=== PATIENT | female | born 1975 | race Caucasian/White ===

== ENCOUNTER 2020-02-23 07:09 | Inpatient (IN) | payer OTHER ==
[~2020-02-23] VITALS: Ht 170.2 cm; Wt 128.1 kg
[2020-02-23] MEDS ORDERED: FUROSEMIDE INJ 10 MG/ML 4 ML VIAL IV STA (07:13)
[2020-02-23] MEDS ORDERED: ASPIRIN 81 MG CHEW TAB PO ONE ×2 (07:15→09:00)
--- NOTE | 2020-02-23 07:19 | Emergency Department Note ---
History of Present Illnes History of Present Illness History of Present Illness This is a 44 year old female with dyspnea and fluid retention of one day duration . Historian: Patient Arrival Mode: Car Onset (how long ago): day(s) (1) Location: chest pain Radiation: Reports non-radiation Severity: moderate Onset quality: sudden Duration (how long): day(s) (1) Timing of current episode: constant Progression: worsening Chronicity: new Context: Denies hx of DVT/PE Relieving factors: rest Exacerbating factors: movement, other (SEBASTIAN) Associated symptoms: Reports chest pain, Reports shortness of breath Treatments prior to arrival: none Previous service: tests performed Past Medical/Family History Physician Review I have reviewed the patient's past medical and family history. Any updates have been documented here. Past Medical History Recent Fever: No Clinical Suspicion of Infectio: No New/Unexplained Change in Ment: No Past Medical History: Hypertension Other Medical History: Morbid Obesity Social History Smoking Cessation: Current every day smoker Counseling Performed: Yes Alcohol Use: None Any Illegal Drug Use: No Review of Systems Review of Systems Constitutional: Reports no symptoms EENTM: Reports no symptoms Cardiovascular: Reports chest pain, Reports edema Respiratory: Reports dyspnea Gastrointestinal: Reports no symptoms Genitourinary: Reports no symptoms Musculoskeletal: Reports no symptoms Integumentary: Reports no symptoms Neurological: Reports no symptoms Psychological: Reports no symptoms Endocrine: Reports no symptoms Hematological/Lymphatic: Reports no symptoms Physical Exam Related Data Allergies: Coded Allergies: sulfamethoxazole (Verified Allergy, Mild, NERVOUS, 02/23/20) trimethoprim (Verified Allergy, Mild, NERVOUS, 02/23/20) Triage Vital Signs Vital Signs Date Time Temp Pulse Resp B/P (MAP) Pulse Ox O2 Delivery O2 Flow Rate FiO2 02/23/20 07:18 97.7 71 22 178/95 95 Room Air 02/23/20 09:00 4.0 Vital signs reviewed: Yes Physical Exam CONSTITUTIONAL Constitutional: Present well-developed, Present morbidly obese, Present distressed, Present ill appearing HENT HENT: Present normocephalic, Present atraumatic, Present oropharynx clear/moist, Present nose normal HENT L/R: Present left ext ear normal, Present right ext ear normal EYES Eyes: Reports PERRL, Reports conjunctivae normal NECK Neck: Present ROM normal PULMONARY Pulmonary: Present respiratory distress CARDIOVASCULAR Cardiovascular: Present regular rhythm, Present LLE edema, Present RLE edema GASTROINTESTINAL Abdominal: Present soft, Present nontender, Present bowel sounds normal GENITOURINARY Genitourinary: Present exam deferred SKIN Skin: Present warm, Present dry MUSCULOSKELETAL Musculoskeletal: Present ROM normal NEUROLOGICAL Neurological: Present alert, Present oriented x 3, Present no gross motor or sensory deficits PSYCHOLOGICAL Psychological: Present mood/affect normal, Present judgement normal Results Laboratory Lab results reviewed: Yes Laboratory comments Laboratory Tests Test 02/23/20 07:41 White Blood Count 9.45 x10e3/uL (4.8-10.8) Red Blood Count 4.41 x10e6/uL (3.6-5.1) Hemoglobin 11.6 g/dL (12.0-16.0) Hematocrit 37.8 % (34.2-44.1) Mean Corpuscular Volume 85.7 fL (81-99) Mean Corpuscular Hemoglobin 26.3 pg (28-32) Mean Corpuscular Hemoglobin Concent 30.7 g/dL (31-35) Red Cell Distribution Width 15.3 % (11.7-14.4) Platelet Count 267 x10e3/uL (140-360) Neutrophils (%) (Auto) 73.4 % (38.7-80.0) Lymphocytes (%) (Auto) 13.5 % (18.0-39.1) Monocytes (%) (Auto) 7.6 % (4.4-11.3) Eosinophils (%) (Auto) 4.2 % (0.0-6.0) Basophils (%) (Auto) 0.8 % (0.0-1.0) Neutrophils # (Auto) 6.9 (2.1-6.9) Lymphocytes # (Auto) 1.3 (1.0-3.2) Monocytes # (Auto) 0.7 (0.2-0.8) Eosinophils # (Auto) 0.4 (0.0-0.4) Basophils # (Auto) 0.1 (0.0-0.1) Absolute Immature Granulocyte (auto 0.05 x10e3/uL (0-0.1) Prothrombin Time 12.1 seconds (11.9-14.5) Prothromb Time International Ratio 0.86 Sodium Level 138 mmol/L (136-145) Potassium Level 4.4 mmol/L (3.5-5.1) Chloride Level 105 mmol/L (98-107) Carbon Dioxide Level 22 mmol/L (22-29) Anion Gap 15.4 mmol/L (8-16) Blood Urea Nitrogen 15 mg/dL (7-26) Creatinine 1.68 mg/dL (0.57-1.11) Estimat Glomerular Filtration Rate 33 ML/MIN (60-) BUN/Creatinine Ratio 9 (6-25) Glucose Level 113 mg/dL (74-118) Lactic Acid Level 1.5 mmol/L (0.5-2.0) Calcium Level 8.7 mg/dL (8.4-10.2) Total Bilirubin 0.7 mg/dL (0.2-1.2) Aspartate Amino Transf (AST/SGOT) 22 IU/L (5-34) Alanine Aminotransferase (ALT/SGPT) 18 IU/L (0-55) Alkaline Phosphatase 128 IU/L (40-150) Creatine Kinase 322 IU/L (29-168) Creatine Kinase MB 4.80 ng/mL (0-5.0) Troponin I 0.008 ng/mL (0-0.300) B-Type Natriuretic Peptide 401.1 pg/mL (0-100) Total Protein 6.3 g/dL (6.5-8.1) Albumin 2.3 g/dL (3.5-5.0) Globulin 4.0 g/dL (2.3-3.5) Albumin/Globulin Ratio 0.6 (0.8-2.0) Imaging Imaging results reviewed: Yes Impressions [place] [id number] Patient Name: DULCE ROBERTS MR #: [id number] : 1975 Age/Sex: 44/F Req #: [id number] Adm Physician: Ordered by: FATOUMATA SELAS DO Report #: [id number] Location: ER Room/Bed: Procedure: [id number] DX/CHEST SINGLE (PORTABLE) Exam Date: 02/23/20 Exam Time: 0746 REPORT STATUS: Signed EXAMINATION: CHEST SINGLE (PORTABLE) INDICATION: Shortness of breath. Thin fluids. COMPARISON: None FINDINGS: TUBES and LINES: None. LUNGS: There is mild prominence of the central pulmonary vasculature, consistent with pulmonary venous congestion. Right basal atelectasis. PLEURA: Small right pleural effusion. No pneumothorax. HEART AND MEDIASTINUM: Cardiac size is mildly enlarged. BONES AND SOFT TISSUES: No acute osseous lesion. Soft tissues are unremarkable. UPPER ABDOMEN: No free air under the diaphragm. IMPRESSION: Decompensated CHF with bilateral pulmonary venous congestion and interstitial edema. Right pleural effusion. Signed by: Dr. Shayy Mccallum M.D. on 02/23/2020 8:19 AM Dictated By: SOFIA MCCALLUM MD, MD 8 Transcribed By: LUAN on 02/23/20818 COPY TO: FATOUMATA SEALS DO~ Procedures 12 Lead ECG Interpretation ECG Interpretation : ECG: ECG 1 Sba Underwriter: Interpreted by ED physician Date: Feb 23, 2020 Rhythm: sinus rhythm Rate: normal BPM: 71 QRS axis: normal ST segments normal: Yes T waves normal: No T waves flattening: I, II, III, V3, V4, V5, V6 Clinical Impression: non-specific ECG Critical Care Time Total Critical Care Time (min): 31 Critcal care necessary due to: cardiac failure, respiratory failure Critcal care time spent by me: develop tx plan w patient/surrogate, discussion w consultants, discussion w primary provider, evaluation patient response to tx, examination of patient, order/perform tx or interventions, order/review laboratory studies, order/review radiographic studies, pulse oximetry, re- evaluation of patient condition, ventilator management Comments 44 yof with acute respiratory distress . BiPAP immediately initiated upon arrival Assessment & Plan Medical Decision Making MDM 44 yof presents with CP and dyspnea. CBC, CMP, Cardiac enzymes,EKG CXR to evaluate for PTX, PNA, CHF, ACS, and COVID-19 URI. Reassessment Reassessment time: 09:46 Reassessment markedly improved WOB. BiPAP discontinued. Plan to admit to the service of Dr Oz Seals with cardiology consult for new onset CHF Assessment & Plan Final Impression: (1) CHF (congestive heart failure) (2) Tobacco abuse (3) Renal insufficiency (4) Hypertensive urgency Depart Disposition: ADMITTED Home Meds Reported Medications Aspirin (ASPIRIN CHEW) 81 Mg Chew, 81 MG PO DAILY, #30 TAB 02/23/20 Dulaglutide (Trulicity) 1.5 Mg/0.5 Ml Pen.injctr, 1.5 MG SQ UD 02/23/20 Simvastatin (SIMVASTATIN) 20 Mg Tablet, 20 MG PO HS 02/23/20 Nifedipine (NIFEDIPINE ER) 90 Mg Tab.er.24, 90 MG PO UD 02/23/20 Metformin Hcl (METFORMIN HCL) 1,000 Mg Tablet, 1000 MG PO BID 02/23/20 Lisinopril (LISINOPRIL) 40 Mg Tablet, 40 MG PO BID 02/23/20 Levothyroxine Sodium (LEVOTHYROXINE SODIUM) 88 Mcg Tablet, 88 MCG PO QAM 02/23/20 Insulin Glargine (LANTUS 3ML PEN) 100 Units/1 Ml Inj, 30 U SQ HS 02/23/20 Sitagliptin Phosphate (JANUVIA) 100 Mg Tablet, 100 MG PO DAILY, #30 TAB 02/23/20 Furosemide (FUROSEMIDE) 20 Mg Tablet, 20 MG PO BID 02/23/20 Atenolol (ATENOLOL) 100 Mg Tablet, 100 MG PO HS 02/23/20 Albuterol Sulfate (ALBUTEROL SULFATE) 2.5 Mg/3 Ml Vial.neb, 1 INH INH Q4HR PRN for SHORTNESS OF BREATH 02/23/20 Medications in the ED Aspirin 81 mg PRN ONCE PO Last administered on 02/23/20at 08:27; Admin Dose 81 MG; Start 02/23/20 at 07:15; Stop 02/23/20 at 07:16 Furosemide 80 mg ONCE STAT IV Last administered on 02/23/20at 08:27; Admin Dose 80 MG; Start 02/23/20 at 07:13; Stop 02/23/20 at 07:14 FATOUMATA SEALS DO Feb 23, 2020 07:19
[2020-02-23 08:01] LABS: BASOPHILS # (AUTO) 0.1 (0.0-0.1); BASOPHILS % 0.8 % (0.0-1.0); EOSINOPHILS # (AUTO) 0.4 (0.0-0.4); EOSINOPHILS % 4.2 % (0.0-6.0); HEMATOCRIT 37.8 % (34.2-44.1); HEMOGLOBIN 11.6 g/dL (12.0-16.0); LYMPHOCYTES # (AUTO) 1.3 (1.0-3.2); LYMPHOCYTES % 13.5 % (18.0-39.1); MEAN CORPUSCULAR HEMOGLOBIN 26.3 pg (28-32); MEAN CORPUSCULAR HGB CONC 30.7 g/dL (31-35); MEAN CORPUSCULAR VOLUME 85.7 fL (81-99); MONOCYTES # (AUTO) 0.7 (0.2-0.8); MONOCYTES % 7.6 % (4.4-11.3); NEUTROPHILS # (AUTO) 6.9 (2.1-6.9); NEUTROPHILS % 73.4 % (38.7-80.0); PLATELET COUNT 267 x10e3/uL (140-360); RED BLOOD COUNT 4.41 x10e6/uL (3.6-5.1); RED CELL DISTRIBUTION WIDTH 15.3 % (11.7-14.4)
[2020-02-23 08:12] LABS: INR 0.86; PROTHROMBIN TIME 12.1 seconds (11.9-14.5)
[2020-02-23 08:19] LABS: ALBUMIN 2.3 g/dL (3.5-5.0); ALBUMIN/GLOBULIN RATIO 0.6 (0.8-2.0); ANION GAP 15.4 mmol/L (8-16); CALCIUM 8.7 mg/dL (8.4-10.2); CREATININE, SERUM 1.68 mg/dL (0.57-1.11); POTASSIUM 4.4 mmol/L (3.5-5.1)
--- NOTE | 2020-02-23 08:22 | Diagnostic Imaging Report ---
EXAMINATION: CHEST SINGLE (PORTABLE) INDICATION: Shortness of breath. Thin fluids. COMPARISON: None FINDINGS: TUBES and LINES: None. LUNGS: There is mild prominence of the central pulmonary vasculature, consistent with pulmonary venous congestion. Right basal atelectasis. PLEURA: Small right pleural effusion. No pneumothorax. HEART AND MEDIASTINUM: Cardiac size is mildly enlarged. BONES AND SOFT TISSUES: No acute osseous lesion. Soft tissues are unremarkable. UPPER ABDOMEN: No free air under the diaphragm. IMPRESSION: Decompensated CHF with bilateral pulmonary venous congestion and interstitial edema. Right pleural effusion. Signed by: Dr. Shayy Caro M.D. on 02/23/2020 8:19 AM
[2020-02-23 08:25] LABS: CREATINE KINASE MB 4.8 ng/mL (0-5.0)
[2020-02-23] MEDS ORDERED: SIMVASTATIN20 MG PO (09:35)
[2020-02-23] MEDS ORDERED: FUROSEMIDE20 MG PO (09:35)
[2020-02-23] MEDS ORDERED: ASPIRIN CHEW81 MG PO (09:35)
[2020-02-23] MEDS ORDERED: LISINOPRIL40 MG PO (09:35)
[2020-02-23] MEDS ORDERED: METFORMIN HCL1000 MG PO (09:35)
[2020-02-23] MEDS ORDERED: TRULICITY1.5 MG/0.5 SQ (09:35)
[2020-02-23] MEDS ORDERED: LANTUS 3ML100 UNITS/ SQ (09:35)
[2020-02-23] MEDS ORDERED: JANUVIA100 MG PO (09:35)
[2020-02-23] MEDS ORDERED: LEVOTHYROXINE88 MCG PO (09:35)
[2020-02-23] MEDS ORDERED: ATENOLOL100 MG PO (09:35)
[2020-02-23] MEDS ORDERED: ALBUTEROL2.5 MG/3 M INH (09:35)
[2020-02-23] MEDS ORDERED: NIFEDIPINE ER90 M1 PO (09:35)
[2020-02-23] MEDS ORDERED: LISINOPRIL 20 MG TAB PO SCH (10:30)
[2020-02-23] MEDS ORDERED: HYDRALAZINE HCL 20 MG/ML VIAL IV PRN (10:30)
--- NOTE | 2020-02-23 10:40 | NUR ---
PT TO THE FLOOR FROM ER. VITALS WNL. PT DENIES NEEDS AT THIS TIME.
[2020-02-23 10:59] VITALS: BP 161/88
[2020-02-23] MEDS ORDERED: ALBUTEROL/IPRATROPIUM 3 ML NEB NEB PRN (11:00)
[2020-02-23] MEDS ORDERED: DEXTROSE 50% SYRINGE 50 ML IV PRN (11:00)
[2020-02-23 11:07] VITALS: BP 161/88
[2020-02-23 11:08] VITALS: BP 161/88
[2020-02-23] MEDS: INSULIN LISPRO 100 UNIT/1 ML 3ML VIAL SQ SCH ×3 (11:30→22:48)
--- NOTE | 2020-02-23 11:41 | History and Physical ---
PRIMARY CARE PHYSICIAN: Viraj Aburto MD. CHIEF COMPLAINT: Decompensated congestive heart failure associated with severe high blood pressure with hypertensive emergency. HISTORY OF PRESENT ILLNESS: The patient is a 44-year-old female from [place], moved to [place] approximately a year ago. Since then, the patient has not been able to see a poultry packer. She just recently has been seeing Dr. Viraj Aburto as her primary care physician. She has some vascular workup otherwise. The patient was stable. At home, the patient was taking diuretic. She was taking the Lasix 20 mg twice a day, along with that she is also taking multiple other medications including medication for her diabetes, hypertension, dyslipidemia, and her COPD. The patient is on inhaler. The patient is also on Trulicity for her diabetes as well. She is a long-time smoker, approximately a pack per day, but prior to that, much more. The patient now with decompensated congestive heart failure, where she has an increase in bilateral lower extremity edema. She has tried to take more diuretic without any relief and the patient came in. X-ray showed pulmonary edema. The patient also has in light of chronic kidney disease, her BUN and creatinine were 15 and 1.6. She is morbidly obese. The patient is otherwise stable at this time. PAST MEDICAL HISTORY: 1. Diabetes type 2, on insulin therapy. 2. Morbid obesity. 3. Congestive heart failure. 4. Hypertension. 5. Dyslipidemia. 6. Smoker with COPD. PAST SURGICAL HISTORY: Noncontributory. SOCIAL HISTORY: The patient is a heavy smoker for years. She smoked as a very young age. She also has social alcohol drinker. No recreational drugs. ALLERGIES: TRIMETHOPRIM AND SULFA. HOME MEDICATIONS: 1. Albuterol. 2. Aspirin. 3. Atenolol. 4. Trulicity. 5. Furosemide. 6. Lantus insulin. 7. Levothyroxine. 8. Lisinopril. 9. Metformin. 10. Nifedipine ER. 11. Simvastatin. 12. Januvia. PHYSICAL EXAMINATION: VITAL SIGNS: Temperature is 98, blood pressure 178/95, pulse rate is 71, respirations 22. GENERAL: The patient is awake. She is on oxygen. She is not in acute distress. HEENT: Normocephalic, atraumatic. She is anicteric. NECK: Supple grossly. Positive JVD. PULMONARY: Bilateral rales at the bases. CARDIOVASCULAR: S1, S2. Regular rate and rhythm. ABDOMEN: Morbidly obese. EXTREMITIES: Two to 3+ edema with chronic venous skin changes. NEUROLOGIC: No focal deficit. LABORATORY DATA: Sodium is 138, potassium 4.4, chloride 105, bicarb 22, BUN 15, creatinine 1.7, glucose 113. WBC is 9.5, hemoglobin 11.6, hematocrit 38, platelets 267. Chest x-ray, pulmonary edema. IMPRESSION: 1. [id number] systolic dysfunction, congestive heart failure exacerbation associated with pulmonary edema, decompensated congestive heart failure. 2. Baseline diabetes type 2. 3. Hypertension. 4. Dyslipidemia. 5. Acute exacerbation of chronic obstructive pulmonary disease with wheezing and heavy smoker. 6. Morbid obesity. 7. Multiple baseline problem as mentioned above. PLAN: Diurese the patient. Consultation with Dr. Mahendra Amaro. Echocardiogram showed ejection fraction of 30-35%. Nebulizer treatment. CT chest without contrast. Insulin sliding scale coverage. Resume some home medication except for metformin and medication non-formulary will be hold off for now. We will monitor the patient's electrolytes. Renal consult. The patient may need cardiac catheterization. We will follow on the patient closely. MD MARILU Conti/JUAN MANUEL /[id number]
--- NOTE | 2020-02-23 12:26 | Consultation ---
DATE OF CONSULTATION: Cardiology consultation CHIEF COMPLAINT: Shortness of breath. HISTORY OF PRESENT ILLNESS: The patient is a 44-year-old female who has been having worsening shortness of breath and dyspnea on exertion for the last 2 weeks. Today, the dyspnea became particularly bad and the patient came to the emergency room. The patient has had no chest pain. No nausea. No vomiting. No abdominal pain. PAST MEDICAL HISTORY: Significant for, 1. Hypertension. 2. Diabetes mellitus. SOCIAL HISTORY: The patient does not drink, but is a smoker. FAMILY HISTORY: There is a known family history of hypertension and diabetes. PHYSICAL EXAMINATION: GENERAL: The patient is a well-developed, well-nourished female, in no distress. VITAL SIGNS: Temperature of 97.7, pulse 70, blood pressure 160/90. HEAD, EARS, EYES, NOSE, AND THROAT: The patient's cranium was normocephalic and atraumatic. Extraocular muscles were intact. Sclerae were anicteric. Pupils were equal, round, and reactive to light. There was no pallor or cyanosis of the oral mucosa. There was no erythema or edema of the throat. NECK: Supple. There was no jugular venous distention. No carotid bruits. CHEST: Demonstrated rales at the bases. CARDIAC: Normal S1 and S2 with a short 2/6 systolic murmur. ABDOMEN: Good bowel sounds. No tenderness. EXTREMITIES: There was 2+ bilateral edema. NEUROLOGIC: The patient was alert and oriented x3. Cranial nerves II through XII are intact. Motor strength was +5/+5 in all limbs. IMAGING DATA: The patient's EKG demonstrated normal sinus rhythm with nonspecific ST and T-wave changes. IMPRESSION: The patient is a 44-year-old with acute dyspnea, which appears to be multifactorial in origin. There is definitely a component of congestive heart failure based on the chest x-ray. The patient also probably has some underlying chronic obstructive pulmonary disease from heavy smoking. RECOMMENDATIONS: 1. The patient will need to be diuresed with IV Lasix. 2. An echocardiogram has been ordered. 3. Lexiscan nuclear stress test has been ordered to exclude ischemia. 4. The patient has been restarted on KAELA inhibitors and beta-blockers. Mahendra Amaro MD [facility]/MODL /[id number] cc: Michael Seals MD
[2020-02-23] MEDS: FUROSEMIDE INJ 10 MG/ML 4 ML VIAL IV SCH ×3 (12:30→22:30)
[2020-02-23] MEDS: HYDRALAZINE HCL 25 MG TAB PO SCH ×3 (12:56→22:57)
--- NOTE | 2020-02-23 13:37 | Consultation ---
DATE OF CONSULTATION: 02/23/2020 Renal Consultation REASON FOR CONSULTATION: Chronic kidney disease, volume overload. HISTORY OF PRESENT ILLNESS: A 44-year-old female with history of diabetes complicated by retinopathy and neuropathy, presented to [facility] with increased swelling and shortness of breath. The patient states that approximately 9 months ago, she weighed approximately 250 pounds and feels like she has gained almost 100 pounds in fluid. The patient was taking Lasix without much success and presented to the hospital. The patient was just recently seen by her primary care doctor and was told that she had elevated creatinine and would need to see a kidney specialist. She denies taking any jbnt-ttg-fkwjgtg medications including NSAIDs. REVIEW OF SYSTEMS: A 12-point review of systems completed. All systems negative other than mentioned in the HPI above. PAST MEDICAL HISTORY: 1. Chronic kidney disease, stage 3. 2. Diabetes type 2, complicated by neuropathy and retinopathy. 3. Hypertension. 4. Obesity. 5. Dyslipidemia. PAST SURGICAL HISTORY: 1. Eye surgery. 2. Rotator cuff surgery. SOCIAL HISTORY: Positive tobacco. Positive alcohol. No IV drugs. FAMILY HISTORY: Sister with chronic kidney disease. ALLERGIES: BACTRIM. CURRENT MEDICATIONS: See list. PHYSICAL EXAMINATION: VITAL SIGNS: Blood pressure 161/88, pulse 68, respiratory rate 22, and temperature 97.8. GENERAL: No apparent distress. Obese. HEENT: Oropharynx clear. No scleral icterus. No peripheral edema. NECK: Supple. CHEST: Clear to auscultation with decreased breath sounds at the bases bilaterally. CARDIOVASCULAR: Regular rhythm. No murmurs or rubs. ABDOMEN: Soft. Positive bowel sounds. No tenderness. Positive pitting edema. EXTREMITIES: 3+ pitting edema. No clubbing. No cyanosis. SKIN: Warm. LABORATORY DATA: Sodium 138, potassium 4.4, chloride 105, CO2 22, BUN 15, creatinine 1.68, and estimated GFR 33. BNP 401. Albumin 2.3. Hemoglobin 11.6, white count 9.45, and platelets 267. Chest x-ray, right pleural effusion, vascular congestion. ASSESSMENT AND PLAN: 1. Stage 3 chronic kidney disease, suspect secondary to diabetic nephropathy. We will check urine studies, renal ultrasound, and urine spot protein to creatinine ratio. The patient will need to be discharged on KAELA or ARB. We will quantitate proteinuria. 2. Volume overload. We will increase Lasix to 80 mg b.i.d. The patient appears to be approximately 100 pounds overloaded with fluid. May need Lasix drip or ultrafiltration. 3. Anemia, suspect secondary to chronic kidney disease. We will check iron stores. 4. Lytes acceptable. We will follow daily while on Lasix drip. 5. Diabetes per primary team. MD COLEMAN Honeycutt/MODL /[id number]
[2020-02-23] MEDS: ALBUTEROL/IPRATROPIUM 3 ML NEB NEB SCH ×2 (14:50→19:00)
[2020-02-23 15:59] VITALS: BP 157/85
[2020-02-23] MEDS: ENOXAPARIN SOD INJ 40 MG/0.4 ML SYR SC SCH (16:13)
[2020-02-23] MEDS ORDERED: FUROSEMIDE 20 MG TAB PO SCH (17:00)
[2020-02-23 18:18] LABS: CREATINE KINASE MB 5.4 ng/mL (0-5.0)
--- NOTE | 2020-02-23 19:40 | NUR ---
BEDSIDE SHIFT REPORT RECEIVED FROM ORALIA OLSEN. PT IS ALERT AND ORINETED X3. O2 ON 3.5 L PER N/C. TELE ON. SL LEFT SL 20G. PT DENIES PAIN. PT TOLERATING PO WELL. CALL LIGHT WITHIN REACH.PERMIT SIGNED.
[2020-02-23 20:00] VITALS: BP 148/84
[2020-02-23 21:00] VITALS: BP 148/84
[2020-02-23] MEDS ORDERED: FUROSEMIDE INJ 10 MG/ML 4 ML VIAL IV SCH (21:00)
[2020-02-23] MEDS: SIMVASTATIN 20 MG TAB PO SCH (22:55)
[2020-02-23] MEDS: ATENOLOL 100 MG TAB PO SCH (22:56)
[2020-02-23] MEDS: INSULIN GLARGINE 100 UNITS/ML VIAL SQ SCH (23:03)
[2020-02-24] VITALS (8 sets, daily range): BP systolic 146–166; BP diastolic 64–88
[2020-02-24] MEDS: ALBUTEROL/IPRATROPIUM 3 ML NEB NEB SCH ×4 (00:38→19:40)
--- NOTE | 2020-02-24 01:35 | NUR ---
pt c/o of headache. Dr Seals notified and new order received for Tylenol 650 mg po q 6 hrs prn.
[2020-02-24] MEDS: ACETAMINOPHEN 325 MG TAB PO PRN ×2 (01:46→07:36)
[2020-02-24] MEDS ORDERED: LEVOTHYROXINE SODIUM 88 MCG TAB PO SCH (06:00)
[2020-02-24 06:09] LABS: BASOPHILS # (AUTO) 0.1 (0.0-0.1); BASOPHILS % 0.7 % (0.0-1.0); EOSINOPHILS # (AUTO) 0.3 (0.0-0.4); EOSINOPHILS % 3.8 % (0.0-6.0); HEMOGLOBIN 11.1 g/dL (12.0-16.0); LYMPHOCYTES # (AUTO) 1.2 (1.0-3.2); LYMPHOCYTES % 14.1 % (18.0-39.1); MEAN CORPUSCULAR HEMOGLOBIN 27.1 pg (28-32); MEAN CORPUSCULAR HGB CONC 30.8 g/dL (31-35); MONOCYTES # (AUTO) 0.7 (0.2-0.8); MONOCYTES % 8.2 % (4.4-11.3); NEUTROPHILS # (AUTO) 6.1 (2.1-6.9); NEUTROPHILS % 72.8 % (38.7-80.0); PLATELET COUNT 224 x10e3/uL (140-360); RED BLOOD COUNT 4.09 x10e6/uL (3.6-5.1); RED CELL DISTRIBUTION WIDTH 15.4 % (11.7-14.4)
[2020-02-24] MEDS: FUROSEMIDE INJ 10 MG/ML 4 ML VIAL IV SCH ×2 (06:19→18:25)
[2020-02-24 06:35] LABS: ALBUMIN/GLOBULIN RATIO 0.5 (0.8-2.0); ANION GAP 13.3 mmol/L (8-16); CALCIUM 8.4 mg/dL (8.4-10.2); CREATININE, SERUM 1.59 mg/dL (0.57-1.11); POTASSIUM 4.3 mmol/L (3.5-5.1)
[2020-02-24] MEDS: NIFEDIPINE CR 30 MG TAB PO SCH (06:43)
--- NOTE | 2020-02-24 07:09 | NUR ---
bedside shift report received from PM nurse. pt awake, alert, oriented, no s/s of distress. consent signed from stress test today in the AM. pt not NPO, but instructed not to have any caffeine or beta-blockers prior to exam.
[2020-02-24 07:12] LABS: CHOL/HDL RATIO 2.4 (3.0-3.6)
[2020-02-24] MEDS: INSULIN LISPRO 100 UNIT/1 ML 3ML VIAL SQ SCH ×4 (07:30→21:00)
[2020-02-24 07:32] LABS: THYROID STIMULATING HORMONE 5.068 uIU/mL (0.350-4.940)
[2020-02-24 07:52] LABS: CREATINE KINASE MB 4.3 ng/mL (0-5.0)
--- NOTE | 2020-02-24 08:17 | NUR ---
spoke with Nuclear Medicine who states pt should have been NPO and Dr. Amaro needs to be paged. paging Dr. Amaro. awaiting callback.
--- NOTE | 2020-02-24 08:34 | NUR ---
Dr. Amaro's MANAGER [employer] at bedside; informed her of previous page to Dr. Amaro. she states she will discuss with .
--- NOTE | 2020-02-24 08:56 | NUR ---
spoke with Renal tech at bedside; she states she is unable to visualize both kidneys morales to size of body habitus; will attempt pt again later.
[2020-02-24] MEDS: HYDRALAZINE HCL 25 MG TAB PO SCH ×3 (09:00→21:10)
[2020-02-24] MEDS: SITAGLIPTIN 100 MG TAB PO SCH (09:00)
[2020-02-24] MEDS: ASPIRIN 81 MG CHEW TAB PO SCH (09:00)
[2020-02-24 09:23] LABS: CREATININE,URINE RANDOM 28.15 mg/dL (47-110); TOTAL PROTEIN, URINE 196.8 mg/dL (1-14)
[2020-02-24 10:15] LABS: CLARITY,URINE CLEAR (CLEAR); COLOR,URINE YELLOW (YELLOW); KETONES,URINE NEGATIVE (NEGATIVE); LEUKOCYTE ESTERASE ,URINE NEGATIVE (NEGATIVE); NITRITE,URINE NEGATIVE (NEGATIVE); PROTEIN,URINE DIPSTICK >=300 (NEGATIVE); URINE UROBILINOGEN 0.2 mg/dL (0.2 - 1)
[2020-02-24 10:16] LABS: BACTERIA,URINE RARE /HPF; BILIRUBIN,URINE NEGATIVE (NEGATIVE); EPITHELIAL CELLS,URINE FEW /LPF
[2020-02-24] MEDS ORDERED: REGADENOSON 0.4 MG/5 ML SYR IV ONE (12:11)
--- NOTE | 2020-02-24 12:19 | NUR ---
PT LEFT FOR STRESS TEST. LEFT IN STABLE CONDITION.
--- NOTE | 2020-02-24 12:44 | NUR ---
Discontinuing PT services since patient is Mod i in functional mobility and is at her baseline functional level.Thank you Addendum: 02/24/20 at 1246 by Silas hill PT Amended: Links added.
--- NOTE | 2020-02-24 15:40 | NUR ---
PT DID NOT TOLERATE STRESS TEST. RETURNING BACK TO 133. [address] DR. CABALLERO.
--- NOTE | 2020-02-24 16:58 | NUR ---
Nutrition Screen Note RD Recommendation for Physician: -Recommend advancing to cardiac/ADA diet when medically appropriate Plan of Care: RD following, monitoring for tolerance and adequacy Nutrition reason for involvement: Consult and Diagnosis - CHF Primary Diagnose(s): CHF, hypertensive urgency PMH: Diabetes type 2, on insulin therapy, Morbid obesity, Congestive heart failure, Hypertension, Dyslipidemia, Smoker with COPD. Ht:67 in Wt: 348 lb BMI:54.5 kg/m2 IBW:[address] Assessment: (02/24/20) Chart reviewed. Labs and meds reviewed. Pt is a 44 year old female admitted with CHF and hypertensive urgency. Pt is currently NPO. Pt reports she has been eating about 50% of her meals. It is recorded that pt consumed 75% of her dinner meal yesterday. Pt stated she has gained weight due to fluid and usually weighs ~ 250-270 lbs without excess fluid. Pt mentioned weight of 348 lbs in chart is not accurate. No N/V, but pt reports occasional diarrhea. No chewing/swallowing issues. Will continue to monitor Current Diet: NPO Malnutrition Evaluation (02/24/20) The patient does not meet criteria for a specified degree of malnutrition at this time. Will re-evaluate at follow-up as appropriate. Energy intake: Pt reports she has been eating about 50% of her meals. It is recorded that pt consumed 75% of her dinner meal yesterday. Weight loss: No weight loss reported Fat loss: no loss identified Muscle loss: no loss identified Supporting Evidence: Fluid accumulation: 2-3+ pitting edema Functional Status: unable to evaluate Diet Education Needs Assessment: (02/24/20) Diet education indicated, RD discussed and provided written materials regarding following a low sodium diet due to CHF. Pt also requested diabetic diet education materials which were provided but pt stated she did not need verbal explanation at this time Learner(s): pt Barriers: no barriers identified Cultural/Language Modifications: no cultural/language modifications Readiness: eager/acceptance Method: explanation/discussion/handout Topics: heart failure medical nutrition therapy (low sodium) Carbohydrate counting and reading the food label written materials provided only (pt stated she did not need verbal explanation) Understanding/Compliance: pt verbalized understanding of low sodium diet for CHF Nutrition Care Level: moderate Signed: Meenakshi Burns, RD, LD
[2020-02-24] MEDS: ENOXAPARIN SOD INJ 40 MG/0.4 ML SYR SC SCH (18:25)
--- NOTE | 2020-02-24 19:16 | NUR ---
WALKING ROUNDS PERFORMED, RECEIVED PT LAYING SEMI FOWLERS IN BED, AAOX3, RR EVEN AND NON-LABORED, O2 BY NC AT 4L. NO S/SX OF DISTRESS NOTED. LEFT PT LAYING SEMI FOWLERS IN BED, BED IN LOW LOCKED POSITION, SIDE RAILS UPX2, CALL LIGHT AND PHONE WITHIN REACH.
--- NOTE | 2020-02-24 20:16 | Progress Note ---
DATE: 02/24/2020 Renal Progress Note SUBJECTIVE: Events over the past 24 hours have been noted. The patient has no chest pain. No shortness of breath, but she is still edematous when she has anasarca and she says that really bothers her. PHYSICAL EXAMINATION: VITAL SIGNS: Blood pressure 151/88, pulse is 67, afebrile. Intake and output; over the last 24 hours she had 610 in and 1700 out with a negative balance of 1100 mL. GENERAL: The patient is morbidly obese. HEENT: No increased JVD. CARDIOVASCULAR: Regular rate and rhythm. LUNGS: Decreased breath sounds at the bases bilaterally. ABDOMEN: Positive bowel sounds. EXTREMITIES: The patient has edema all over. LABORATORY RESULTS: Sodium 136, potassium 4.3, chloride 105, bicarb 22, BUN and creatinine 15 and 1.6 respectively. Chest x-ray shows pulmonary congestion. IMPRESSION/PLAN: 1. Chronic kidney disease, stage 3. 2. Anasarca. 3. Fluid overload. 4. Diabetes. 5. Hypertension. PLAN: The patient is on Lasix intermittent 40 mg IV q.8 hours. She does have a good urine output. However, the nurse tells me that she is still not able to lie down flat. When she lies down flat, she becomes short of breath and she says she is having paroxysmal nocturnal dyspnea. Despite this negative fluid balance, she needs to be more negative fluid balance, so I will go ahead and start continuos Lasix infusion at 5 mg an hour. We will run this for about 48 hours. Hopefully, she will diurese enough so that she will unload some of the anasarca. If this does not work, she may need ultrafiltration, but at the present time, lets just start with the continuous Lasix infusion at 5 mg an hour. Ather MD JOYCE Brown/JUAN MANUEL /[id number]
[2020-02-24] MEDS: ATENOLOL 100 MG TAB PO SCH (21:09)
[2020-02-24] MEDS: SIMVASTATIN 20 MG TAB PO SCH (21:10)
[2020-02-24] MEDS: INSULIN GLARGINE 100 UNITS/ML VIAL SQ SCH (21:14)
[2020-02-24] MEDS: FUROSEMIDE INJ 100 MG in SODIUM CHLORIDE 0.9% 100 ML 90 ML IV SCH (22:00)
--- NOTE | 2020-02-24 22:00 | NUR ---
BSC PROVIDED FOR PATIENT.
[2020-02-25] VITALS (7 sets, daily range): BP systolic 138–162; BP diastolic 71–80
[2020-02-25] MEDS: ALBUTEROL/IPRATROPIUM 3 ML NEB NEB SCH ×5 (01:10→19:02)
[2020-02-25] MEDS: ACETAMINOPHEN 325 MG TAB PO PRN (01:32)
[2020-02-25 05:39] LABS: ANION GAP 14.5 mmol/L (8-16); CALCIUM 8.4 mg/dL (8.4-10.2); CREATININE, SERUM 1.7 mg/dL (0.57-1.11); POTASSIUM 4.5 mmol/L (3.5-5.1)
[2020-02-25] MEDS: NIFEDIPINE CR 30 MG TAB PO SCH (06:01)
[2020-02-25] MEDS: LEVOTHYROXINE SODIUM 100 MCG TAB PO SCH (06:01)
--- NOTE | 2020-02-25 06:15 | NUR ---
TELEMETRY BOX NOT READING CORRECTLY. CHANGED BOX TO #22. SR NOTED.
[2020-02-25] MEDS: INSULIN LISPRO 100 UNIT/1 ML 3ML VIAL SQ SCH ×4 (07:30→21:00)
[2020-02-25] MEDS: HYDRALAZINE HCL 25 MG TAB PO SCH ×3 (08:58→21:49)
[2020-02-25] MEDS: SITAGLIPTIN 100 MG TAB PO SCH (08:58)
[2020-02-25] MEDS: ASPIRIN 81 MG CHEW TAB PO SCH (08:58)
--- NOTE | 2020-02-25 11:37 | Diagnostic Imaging Report ---
EXAM: Renal Ultrasound INDICATION: CHF, hypertensive urgency COMPARISON: None TECHNIQUE: Transverse and longitudinal images of the kidneys and bladder were obtained. FINDINGS: Nonvisualization of both kidneys due to extreme patient body habitus and bowel gas. Ascites in the abdomen. IMPRESSION: Nonvisualization of kidneys due to patient body habitus. Abdominal ascites. Signed by: Dago Vides MD on 02/25/2020 11:34 AM
--- NOTE | 2020-02-25 12:08 | NUR ---
DR CARDOSO NOTIFIED OF MULTIPLE ATTEMPTS TO REINSERT PERIPHERALLY IV. ORDERED FOR IR CONSULT FOR MIDLINE VS PICC LINE PLACEMENT. ORDER READ BACK AND VERIFIED.
--- NOTE | 2020-02-25 13:00 | NUR ---
DR. LYLE INMAN PAGED REGARDING CLEARANCE FOR PICC LINE PLACEMENT. AWAITING CALL BACK
--- NOTE | 2020-02-25 15:00 | NUR ---
DR. MALLOY IN TO SEE PATIENT FOR NEPHROLOGY. CLEARED FOR MIDLINE INSERTION. IR NURSE AND IR TECH NOTIFIED. CONSENT FOR MIDLINE PLACED IN CHART.
--- NOTE | 2020-02-25 15:35 | Progress Note ---
DATE: 02/25/2020 Renal Progress Note SUBJECTIVE: Events over the past 24 hours have been noted. The patient lost her IV access this morning and so she has not been on the Lasix drip since this morning. PHYSICAL EXAMINATION: VITAL SIGNS: Blood pressure 148/71, pulse 54, afebrile. Intake and output; in the last 24 hours she has had 470 in and 2600 out with a net balance of -2130. GENERAL: The patient is morbidly obese. HEENT: No increased JVD. CARDIOVASCULAR: Regular rate and rhythm. LUNGS: Decreased breath sounds. ABDOMEN: Decreased bowel sounds. EXTREMITIES: The patient has edema of all extremities. LABORATORY RESULTS: Urine protein to creatinine ratio equals 6. Sodium 134, potassium 4.5, chloride 103, bicarbonate 21, BUN and creatinine 18 and 1.7 respectively. Ultrasound of the kidneys, they were not able to see the kidneys because of her body habitus. Ultrasound showed confirmed abdominal ascites. ASSESSMENT: 1. Chronic kidney disease, stage 3. 2. Anasarca. 3. Fluid overload. 4. Diabetes. 5. Hypertension. PLAN: The patient is on a Lasix drip, however, she has not been on it since this morning because her IV fluid came out. The nurses have tried repeatedly and they stated that no one can obtain a peripheral IV access. They were asking me permission to do the PICC line in her midline. I went ahead and authorized for a midline since that does not go as far near the heart as the PICC line does, however, ideally probably a central line would be the best, but to put a central line just for IV Lasix. I think we can go ahead and use a midline. We will continue the Lasix drip, she is getting it at 5 mg an hour. Continue this and await for the results of the 24-hour urine collection. Ather MD JOYCE Brown/JUAN MANUEL /[id number]
[2020-02-25] MEDS: ENOXAPARIN SOD INJ 40 MG/0.4 ML SYR SC SCH (18:07)
[2020-02-25] MEDS: SIMVASTATIN 20 MG TAB PO SCH (21:49)
[2020-02-25] MEDS: ATENOLOL 100 MG TAB PO SCH (21:49)
[2020-02-25] MEDS: INSULIN GLARGINE 100 UNITS/ML VIAL SQ SCH (21:50)
[2020-02-25] MEDS: FUROSEMIDE INJ 100 MG in SODIUM CHLORIDE 0.9% 100 ML 90 ML IV SCH (21:51)
[2020-02-26] VITALS (8 sets, daily range): BP systolic 139–154; BP diastolic 70–80
[2020-02-26] MEDS: ACETAMINOPHEN 325 MG TAB PO PRN ×2 (00:43→08:59)
[2020-02-26] MEDS: ALBUTEROL/IPRATROPIUM 3 ML NEB NEB SCH ×4 (01:45→20:04)
[2020-02-26 02:21] LABS: CREATININE,URINE RANDOM 120.81 mg/dL (47-110)
[2020-02-26 02:45] LABS: TOTAL PROTEIN, URINE 787.5 mg/dL (1-14)
[2020-02-26] MEDS: LEVOTHYROXINE SODIUM 100 MCG TAB PO SCH (05:41)
[2020-02-26] MEDS: NIFEDIPINE CR 30 MG TAB PO SCH (05:41)
--- NOTE | 2020-02-26 07:00 | NUR ---
RECEIVED PATIENT RESTING IN BED NO S/S OF DISTRESS. BED LOW, WHEELS LOCKED, SIDE RAILS X2. CALL LIGHT IN REACH WILL CONTINUE TO MONITOR PATIENT.
[2020-02-26] MEDS: INSULIN LISPRO 100 UNIT/1 ML 3ML VIAL SQ SCH ×4 (07:30→20:52)
[2020-02-26 08:15] LABS: ANION GAP 15.5 mmol/L (8-16); CALCIUM 8.5 mg/dL (8.4-10.2); CREATININE, SERUM 1.91 mg/dL (0.57-1.11); POTASSIUM 4.5 mmol/L (3.5-5.1)
[2020-02-26] MEDS: ASPIRIN 81 MG CHEW TAB PO SCH (08:55)
[2020-02-26] MEDS: HYDRALAZINE HCL 25 MG TAB PO SCH ×3 (08:55→20:42)
[2020-02-26] MEDS: SITAGLIPTIN 100 MG TAB PO SCH (08:55)
[2020-02-26] MEDS: FUROSEMIDE INJ 100 MG in SODIUM CHLORIDE 0.9% 100 ML 90 ML IV SCH ×2 (12:34→13:30)
--- NOTE | 2020-02-26 15:35 | Progress Note ---
DATE: 02/26/2020 Renal Progress Note SUBJECTIVE: The patient is short of breath. She is somewhat uncomfortable with all the swelling that she has. Servin catheter has just been placed and significant urine output has been yielded. PHYSICAL EXAMINATION: VITAL SIGNS: Blood pressure 150/71, pulse 52, respiration 22, and afebrile. The intake and output; for the last 24 hours she has had 1085 mL in and 325 mL out. She has a positive 760 mL fluid balance if it is accurate. However, it was noted that the patient really was not having much of the urine output until the Servin was placed. The patient is significantly obese. HEENT: No increased JVD. CARDIOVASCULAR: Regular rate and rhythm. LUNGS: Decreased breath sounds. ABDOMEN: Positive bowel sounds. EXTREMITIES: The patient has 3+ edema everywhere. LABORATORY RESULTS: A 24-hour urine collection; protein is still pending. Sodium 133, potassium 4.5, chloride 102, bicarbonate 20, BUN and creatinine 24 and 1.9 respectively. IMPRESSION: 1. Acute kidney injury superimposed on chronic kidney disease. 2. Acute urinary retention. 3. Chronic kidney disease, stage 3. 4. Anasarca. 5. Fluid overload. 6. Diabetic nephropathy. 7. Diabetes. 8. Hypertension. PLAN: The patient is on a Lasix drip. However, even with the Lasix drip she was not really putting out much urine. A Servin was placed and it yielded 500 mL of urine output. She had a little bit of urinary retention. I agree with increasing the Lasix drip to 10 mg an hour. Her last chest x-ray was a few days ago. I will go ahead and repeat a chest x-ray. A renal ultrasound was not able to visualize the kidneys. I will go ahead and get a CT of the abdomen to see what the kidneys appear to and see if there is any increased echogenicity. If the patient is having dyspnea on exertion tomorrow or PND tomorrow, she is going to need renal ultrafiltration. Right now, she has been in a positive fluid balance and just because of the urinary retention, but I am hopeful that with the Servin catheter placed and with the Lasix drip, she will be in a negative fluid balance by tomorrow morning. I will check ANICETO, [id number] DNA, C3, C4, also until the results of the 24-hour urine collection protein come back. Ather MD JOYCE Brown/JUAN MANUEL /[id number]
--- NOTE | 2020-02-26 15:48 | Diagnostic Imaging Report ---
EXAMINATION: CHEST SINGLE (PORTABLE) INDICATION: Shortness of breath COMPARISON: Chest radiograph 02/23/2020 FINDINGS: LINES/TUBES:Back or EKG LUNGS:The left lung is well-inflated. Right lung is moderately inflated. Right basilar patchy opacities silhouette the right hemidiaphragm. PLEURA:Moderate right pleural effusion. No pneumothorax. MEDIASTINUM:The cardiomediastinal silhouette appears unchanged in size and shape. BONES/SOFT TISSUES:No acute osseous injury. ABDOMEN:No free air under the diaphragm. IMPRESSION: Moderate right pleural effusion and right basilar patchy opacities, most likely subsegmental atelectasis. Unchanged cardiomegaly and central pulmonary vascular congestion. Signed by: Dago Vides MD on 02/26/2020 3:44 PM
--- NOTE | 2020-02-26 15:54 | Diagnostic Imaging Report ---
EXAM: CT Abdomen WITHOUT intravenous contrast INDICATION: Chronic kidney disease, hypertension COMPARISON: Renal ultrasound of 02/24/2020 TECHNIQUE: Abdomen and pelvis were scanned utilizing a multidetector helical scanner from the lung base to the pubic symphysis without administration of IV contrast. Coronal and sagittal reformations were obtained. IV CONTRAST: None ORAL CONTRAST: Water COMPLICATIONS: None RADIATION DOSE: Total DLP: 938 mGy*cm Dose modulation, iterative reconstruction, and/or weight based adjustment of the mA/kV was utilized to reduce the radiation dose to as low as reasonably achievable. FINDINGS: LOWER THORAX: Moderate right pleural effusion. Trace left pleural effusion. Bilateral lower lobe dependent subsegmental atelectasis. HEPATOBILIARY: No focal liver lesions. Anterior hepatic subcentimeter calcified granuloma. Cholelithiasis without CT evidence of cholecystitis. SPLEEN: Calcified granulomas in the spleen. No focal lesion. PANCREAS: No focal masses or ductal dilatation. ADRENALS: Bilateral adrenal calcifications may be related to remote adrenal hemorrhage. KIDNEYS/URETERS: Nonobstructive left renal calculi measure up to 3 mm. No hydronephrosis or hydroureter. No solid renal mass lesion. PERITONEUM / RETROPERITONEUM: No free air or fluid. LYMPH NODES: No lymphadenopathy. VESSELS: Moderate atherosclerotic calcifications of the nonaneurysmal abdominal aorta and major branches. GI TRACT: No distention or wall thickening. BONES AND SOFT TISSUES: Diffuse subcutaneous soft tissue edema. IMPRESSION: Nonobstructive left renal calculi measure up to 3 mm. No hydronephrosis, proximal hydroureter, or solid renal mass lesion. Moderate right and trace left pleural effusions. Bibasilar dependent lower lobe subsegmental atelectasis. Cholelithiasis without CT evidence of cholecystitis. Signed by: Dago Vides MD on 02/26/2020 3:51 PM
[2020-02-26] MEDS: ENOXAPARIN SOD INJ 40 MG/0.4 ML SYR SC SCH (16:45)
--- NOTE | 2020-02-26 19:00 | NUR ---
Bedside shift report received from morning nurse. Pt alert and oriented to name, lying in bed HOB 75 degrees. Denies pain at this time. Call light within reach.
[2020-02-26 20:30] LABS: ANION GAP 16.7 mmol/L (8-16); CALCIUM 8.8 mg/dL (8.4-10.2); CREATININE, SERUM 2.09 mg/dL (0.57-1.11); POTASSIUM 4.7 mmol/L (3.5-5.1)
[2020-02-26] MEDS: SIMVASTATIN 20 MG TAB PO SCH (20:42)
[2020-02-26] MEDS: ATENOLOL 100 MG TAB PO SCH (20:42)
[2020-02-26] MEDS: INSULIN GLARGINE 100 UNITS/ML VIAL SQ SCH (20:53)
[2020-02-27] VITALS (7 sets, daily range): BP systolic 140–174; BP diastolic 61–88
[2020-02-27] MEDS: FUROSEMIDE INJ 100 MG in SODIUM CHLORIDE 0.9% 100 ML 90 ML IV SCH ×3 (00:25→22:00)
[2020-02-27] MEDS: ALBUTEROL/IPRATROPIUM 3 ML NEB NEB SCH ×5 (02:25→19:00)
[2020-02-27] MEDS: ACETAMINOPHEN 325 MG TAB PO PRN ×2 (03:00→20:36)
[2020-02-27] MEDS: LEVOTHYROXINE SODIUM 100 MCG TAB PO SCH (06:00)
[2020-02-27] MEDS: NIFEDIPINE CR 30 MG TAB PO SCH (06:00)
[2020-02-27 07:29] LABS: ANION GAP 14.5 mmol/L (8-16); CALCIUM 8.6 mg/dL (8.4-10.2); CREATININE, SERUM 1.91 mg/dL (0.57-1.11); POTASSIUM 4.5 mmol/L (3.5-5.1)
[2020-02-27] MEDS: INSULIN LISPRO 100 UNIT/1 ML 3ML VIAL SQ SCH ×4 (07:30→21:00)
[2020-02-27] MEDS: ASPIRIN 81 MG CHEW TAB PO SCH (08:29)
[2020-02-27] MEDS: SITAGLIPTIN 100 MG TAB PO SCH (08:29)
[2020-02-27] MEDS: HYDRALAZINE HCL 25 MG TAB PO SCH ×3 (08:29→20:33)
--- NOTE | 2020-02-27 13:55 | Progress Note ---
DATE: 02/27/2020 Renal Progress Note SUBJECTIVE: The patient still is having some paroxysmal nocturnal dyspnea and she is still swollen. PHYSICAL EXAMINATION: VITAL SIGNS: Blood pressure 144/66, pulse 85, respiratory rate 20, afebrile, in the last 24 hours her intake has been 860 and her output 1225. Her net fluid is 365 mL negative. GENERAL: The patient is morbidly obese. HEENT: No increased JVD. CARDIOVASCULAR: Regular rhythm. LUNGS: Decreased breath sounds. ABDOMEN: The patient is obese. EXTREMITIES: The patient has 3 to 4+ edema everywhere. LABORATORY RESULTS: Sodium 132, potassium 4.5, chloride 100, bicarb 22, BUN and creatinine 28 and 1.9 respectively. Chest x-ray shows pleural effusion. CT of the abdomen just confirmed she has nonobstructing kidney stone. IMPRESSION: 1. Acute kidney injury superimposed on chronic kidney disease. 2. Chronic kidney disease stage 3. 3. Anasarca. 4. Fluid overload. 5. Diabetic nephropathy. 6. Diabetes. 7. Hypertension. PLAN: The patient is on a Lasix drip, however, her urine output is not as much as I would like. She has only a -360 mL fluid balance and she still is symptomatic as she has PND and dyspnea on exertion. She has also significant pleural effusion of one side. I think at this time ultrafiltration would be in order to rapidly remove her excess total body water. I am getting a 24-hour urine collection that is still pending. Based on the results of 24-hour urine collection, I will decide if she even needs a kidney biopsy to make sure that there is nothing else going on in the kidneys other than diabetic nephropathy. Her serologies, ANICETO, ahlc-[id number]-[id number] DNA, C3, C4 are still pending. We will go ahead and the patient has agreed to start ultrafiltration. Ather MD JOYCE Brown/JUAN MANUEL /[id number]
[2020-02-27] MEDS ORDERED: HEPARIN SOD (PORCINE) 1000 UNIT/ML SDV IV ONE (14:45)
--- NOTE | 2020-02-27 15:44 | Diagnostic Imaging Report ---
PROCEDURE: Non-tunneled temporary dialysis catheter placement Procedural Personnel Attending physician(s): Dago Vides MD Fellow physician(s): None Resident physician(s): None Advanced practice provider(s): None Pre-procedure diagnosis: Acute kidney injury Post-procedure diagnosis: Same Indication: Performance of hemodialysis Additional clinical history: None Complications: No immediate complications. IMPRESSION: Insertion of right-sided non-tunneled triple-lumen temporary dialysis catheter, with tip in the expected location of the superior vena cava. Plan: The catheter may be used immediately. PROCEDURE SUMMARY: - Venous access with ultrasound guidance - Non-tunneled central venous catheter insertion with fluoroscopic guidance - Additional procedure(s): None PROCEDURE DETAILS: Pre-procedure Consent: Informed consent for the procedure including risks, benefits and alternatives was obtained and time-out was performed prior to the procedure. Preparation (MIPS): The site was prepared and draped using all elements of maximal sterile barrier technique including sterile gloves, sterile gown, cap, mask, large sterile sheet, sterile ultrasound probe cover, hand hygiene and cutaneous antisepsis with 2% chlorhexidine. Medical reason for site preparation exception (MIPS): Not applicable Anesthesia/sedation Level of anesthesia/sedation: No sedation Anesthesia/sedation administered by: Independent trained observer under attending supervision with continuous monitoring of the patient?s level of consciousness and physiologic status Total intra-service sedation time (minutes): NA Access Local anesthesia was administered. The vessel was sonographically evaluated and determined to be patent. Real time ultrasound was used to visualize needle entry into the vessel and a permanent image was stored. Vein accessed: Internal jugular vein Access technique: Micropuncture set with 21 gauge needle Catheter placement The access site was dilated and the catheter was placed into the vein over a wire. A sterile dressing was applied. Catheter placed: Bard Trialysis Catheter size (Lithuanian): 13 Catheter length (cm): 15 Catheter flush: Heparin (1000 units/mL) Catheter securement technique: Non-absorbable suture Contrast Contrast agent: None Radiation Dose None. Additional Details Additional description of procedure: None Equipment details: None Specimens removed: None Estimated blood loss (mL): Less than 10 Standardized report: [id number] Attestation Signer name: Dago Vides MD I attest that I was present for the entire procedure. I reviewed the stored images and agree with the report as written. Signed by: Dago Vides MD on 02/27/2020 3:40 PM
--- NOTE | 2020-02-27 15:46 | Diagnostic Imaging Report ---
EXAMINATION: CHEST XRAY POST PROCEDURE INDICATION: Line placement COMPARISON: Chest radiograph 02/26/2020 FINDINGS: LINES/TUBES:Interval placement of right IJ temporary dialysis catheter with tip at the superior vena cava. LUNGS:The lungs are moderately inflated. There is perihilar fullness and indistinctness of the pulmonary vasculature. Patchy right basilar opacity. PLEURA:Moderate right pleural effusion. No pneumothorax. MEDIASTINUM:Cardiomediastinal silhouette is stably enlarged. BONES/SOFT TISSUES:No acute osseous injury. ABDOMEN:No free air under the diaphragm. IMPRESSION: Right IJ temporary dialysis catheter terminates in the SVC. Line is ready for immediate use. Cardiomegaly and central pulmonary vascular congestion. Moderate right pleural effusion and associated right basilar subsegmental atelectasis. Signed by: Dago Vides MD on 02/27/2020 3:43 PM
[2020-02-27] MEDS: ENOXAPARIN SOD INJ 40 MG/0.4 ML SYR SC SCH (17:06)
--- NOTE | 2020-02-27 18:41 | NUR ---
CALL PLACED TO [facility] REGARDING PATIENT NEEDING DIALYSIS.
[2020-02-27] MEDS: ATENOLOL 100 MG TAB PO SCH (20:34)
[2020-02-27] MEDS: SIMVASTATIN 20 MG TAB PO SCH (20:34)
[2020-02-27] MEDS: INSULIN GLARGINE 100 UNITS/ML VIAL SQ SCH (22:02)
[2020-02-28] VITALS (8 sets, daily range): BP systolic 131–162; BP diastolic 57–85
[2020-02-28] MEDS: HYDRALAZINE HCL 25 MG TAB PO PRN (00:57)
[2020-02-28] MEDS: ALBUTEROL/IPRATROPIUM 3 ML NEB NEB SCH ×4 (01:00→19:00)
[2020-02-28] MEDS: NIFEDIPINE CR 30 MG TAB PO SCH (06:17)
[2020-02-28] MEDS: LEVOTHYROXINE SODIUM 100 MCG TAB PO SCH (06:17)
[2020-02-28] MEDS: INSULIN LISPRO 100 UNIT/1 ML 3ML VIAL SQ SCH ×5 (07:30→21:00)
[2020-02-28 07:42] LABS: TOTAL PROTEIN 24HR, URINE 7087.5 mg/24hr (50-100)
[2020-02-28] MEDS: FUROSEMIDE INJ 100 MG in SODIUM CHLORIDE 0.9% 100 ML 90 ML IV SCH (08:59)
[2020-02-28] MEDS: HYDRALAZINE HCL 25 MG TAB PO SCH ×3 (09:00→22:32)
[2020-02-28] MEDS: SITAGLIPTIN 100 MG TAB PO SCH (09:00)
[2020-02-28] MEDS: ASPIRIN 81 MG CHEW TAB PO SCH (09:00)
[2020-02-28] MEDS ORDERED: SODIUM CHLORIDE 0.9% 1000ML 2,000 ML ONE (09:52)
[2020-02-28] MEDS: ACETAMINOPHEN 325 MG TAB PO PRN (10:06)
[2020-02-28 10:24] LABS: BASOPHILS # (AUTO) 0.1 (0.0-0.1); BASOPHILS % 0.6 % (0.0-1.0); EOSINOPHILS # (AUTO) 0.3 (0.0-0.4); HEMATOCRIT 32.9 % (34.2-44.1); HEMOGLOBIN 10.5 g/dL (12.0-16.0); LYMPHOCYTES # (AUTO) 0.7 (1.0-3.2); LYMPHOCYTES % 8.5 % (18.0-39.1); MEAN CORPUSCULAR HEMOGLOBIN 26.9 pg (28-32); MEAN CORPUSCULAR HGB CONC 31.9 g/dL (31-35); MEAN CORPUSCULAR VOLUME 84.4 fL (81-99); MONOCYTES % 12.2 % (4.4-11.3); NEUTROPHILS # (AUTO) 6.2 (2.1-6.9); NEUTROPHILS % 73.5 % (38.7-80.0); PLATELET COUNT 226 x10e3/uL (140-360); RED CELL DISTRIBUTION WIDTH 14.9 % (11.7-14.4)
[2020-02-28] MEDS ORDERED: SODIUM CHLORIDE 0.9% 1000ML 2,000 ML IV PRN (10:30)
[2020-02-28] MEDS ORDERED: ALBUMIN 25% 12.5GM 0.25 GM/ML BTL IV PRN (10:30)
[2020-02-28] MEDS ORDERED: MANNITOL 25% 12.5GM/50 ML VIAL IV PRN (10:30)
[2020-02-28] MEDS ORDERED: HEPARIN SOD (PORCINE) 1000 UNIT/ML SDV IV PRN (10:30)
[2020-02-28 10:31] LABS: ANION GAP 15.5 mmol/L (8-16); CREATININE, SERUM 1.86 mg/dL (0.57-1.11); POTASSIUM 4.5 mmol/L (3.5-5.1)
--- NOTE | 2020-02-28 14:05 | Progress Note ---
DATE: 02/28/2020 Renal Progress Note SUBJECTIVE: Events over the past 24 hours have been noted. I am seeing the patient. She is undergoing her 1st ultrafiltration session right now. I am speaking to the dialysis nurse. PHYSICAL EXAMINATION: VITAL SIGNS: Blood pressure 146/85, pulse 64, respirations 17, and temperature 97.6. Intake and output for the last 24 hours; the patient had 2064 in and 3000 out for a negative 936 mL. GENERAL: The patient is morbidly obese. HEENT: The patient has a Reginaldo catheter in the right neck area. CARDIOVASCULAR: Regular rate and rhythm. LUNGS: Decreased breath sounds. ABDOMEN: Decreased bowel sounds. EXTREMITIES: The patient has edema everywhere. LABORATORY RESULTS: C3 is 173, C4 is 27 and these are both nondiagnostic. She has 7 g of protein on the 24-hour urine collection. Sodium 135, potassium 4.5, chloride 99, bicarbonate 25, and BUN and creatinine 31 and 1.8 respectively. Hemoglobin and hematocrit 10.5 and 33 respectively, platelet count 326. IMPRESSION: 1. Acute kidney injury superimposed on chronic kidney disease. 2. Chronic kidney disease, stage 3. 3. Anasarca. 4. Fluid overload. 5. Diabetic nephropathy. 6. Nephrotic range proteinuria secondary to diabetic nephropathy. PLAN: Reginaldo catheter was placed yesterday. She is undergoing her 1st ultrafiltration session today, we are going to remove 2 L. I am going to stop the Lasix drip and just give her 40 mg of Lasix IV q.24 hours. She will get another ultrafiltration session tomorrow also. Her ANICETO and ufci-jranys-tvlcdmcj DNA are still pending. Ather MD JOYCE Brown/MODL /[id number]
--- NOTE | 2020-02-28 15:46 | NUR ---
Nutrition Screen Note RD Recommendation for Physician: -Recommend adding ADA diet when medically appropriate Plan of Care: RD following, monitoring for tolerance and adequacy Nutrition reason for involvement: follow up Primary Diagnose(s): CHF, hypertensive urgency PMH: Diabetes type 2, on insulin therapy, Morbid obesity, Congestive heart failure, Hypertension, Dyslipidemia, Smoker with COPD. Ht:67 in Wt: 348 lb BMI:54.5 kg/m2 IBW:[address] Assessment: 02/28/20: Follow up. Chart reviewed. It is recorded that pt is consuming 100% of meals. Will continue to monitor. (02/24/20) Chart reviewed. Labs and meds reviewed. Pt is a 44 year old female admitted with CHF and hypertensive urgency. Pt is currently NPO. Pt reports she has been eating about 50% of her meals. It is recorded that pt consumed 75% of her dinner meal yesterday. Pt stated she has gained weight due to fluid and usually weighs ~ 250-270 lbs without excess fluid. Pt mentioned weight of 348 lbs in chart is not accurate. No N/V, but pt reports occasional diarrhea. No chewing/swallowing issues. Will continue to monitor Current Diet: cardiac Malnutrition Evaluation (02/28/20) The patient does not meet criteria for a specified degree of malnutrition at this time. Will re-evaluate at follow-up as appropriate. Energy intake: Adequate PO intake documented Weight loss: No weight loss reported Fat loss: no loss identified Muscle loss: no loss identified Supporting Evidence: Fluid accumulation: 3-4+ edema Functional Status: unable to evaluate Diet Education Needs Assessment: (02/24/20) Diet education indicated, RD discussed and provided written materials regarding following a low sodium diet due to CHF. Pt also requested diabetic diet education materials which were provided but pt stated she did not need verbal explanation at this time Learner(s): pt Barriers: no barriers identified Cultural/Language Modifications: no cultural/language modifications Readiness: eager/acceptance Method: explanation/discussion/handout Topics: heart failure medical nutrition therapy (low sodium) Carbohydrate counting and reading the food label written materials provided only (pt stated she did not need verbal explanation) Understanding/Compliance: pt verbalized understanding of low sodium diet for CHF Nutrition Care Level: low (pt is eating well) Signed: Meenakshi Burns RD, JAYLON
[2020-02-28] MEDS: ENOXAPARIN SOD INJ 40 MG/0.4 ML SYR SC SCH (17:15)
--- NOTE | 2020-02-28 19:20 | NUR ---
received report from day nurse. patient is resting comfortably in the bed. bed is in lowest position and call light is within reach. will continue to monitor patient.
[2020-02-28] MEDS: INSULIN GLARGINE 100 UNITS/ML VIAL SQ SCH (21:00)
[2020-02-28] MEDS: ATENOLOL 100 MG TAB PO SCH (22:32)
[2020-02-28] MEDS: SIMVASTATIN 20 MG TAB PO SCH (22:32)
[2020-02-29] VITALS (8 sets, daily range): BP systolic 127–169; BP diastolic 69–95
[2020-02-29] MEDS: ALBUTEROL/IPRATROPIUM 3 ML NEB NEB SCH ×5 (01:00→19:00)
[2020-02-29] MEDS: LEVOTHYROXINE SODIUM 100 MCG TAB PO SCH (05:17)
[2020-02-29] MEDS: NIFEDIPINE CR 30 MG TAB PO SCH (05:27)
[2020-02-29] MEDS: INSULIN LISPRO 100 UNIT/1 ML 3ML VIAL SQ SCH ×4 (07:30→21:00)
[2020-02-29] MEDS: FUROSEMIDE INJ 10 MG/ML 2 ML VIAL IV SCH (09:53)
[2020-02-29] MEDS: HYDRALAZINE HCL 25 MG TAB PO SCH ×3 (09:54→17:54)
[2020-02-29] MEDS: SITAGLIPTIN 100 MG TAB PO SCH (09:54)
[2020-02-29] MEDS: ASPIRIN 81 MG CHEW TAB PO SCH (09:54)
--- NOTE | 2020-02-29 13:29 | Progress Note ---
DATE: 02/29/2020 Renal Progress Note SUBJECTIVE: Events over the past 24 hours have been noted. The patient underwent ultrafiltration yesterday. 2.2 L were removed. PHYSICAL EXAMINATION: VITAL SIGNS: In the last 24 hours, the patient has had 576 in and 3150 out. The patient is still edematous and she has anasarca. NECK: No increased JVD. CARDIOVASCULAR: Regular rate and rhythm. LUNGS: Decreased breath sounds bilaterally. ABDOMEN: Positive bowel sounds. EXTREMITIES: Edema on extremities. LABORATORY RESULTS: Sodium 135, potassium 4.5, chloride 99, bicarbonate 25. BUN and creatinine of 31 and 1.8 respectively. A 24-hour urine collection shows 7 g of protein. IMPRESSION: 1. Acute kidney injury superimposed on chronic kidney disease. 2. Chronic kidney disease, stage 3. 3. Anasarca. 4. Fluid overload. 5. Nephrotic range proteinuria. 6. Diabetic nephropathy. PLAN: 1. The patient underwent ultrafiltration yesterday. Yesterday was her 1st ultrafiltration, we removed 2.2 L. She is going to undergo ultrafiltration today and we will try to ultrafilter 3 L today. 2. I am considering possibly doing a kidney biopsy just because of the massive amount of proteinuria that she has just to confirm this is a diabetic nephropathy or not. Ather MD JOYCE Brown/MODL /[id number]
[2020-02-29] MEDS ORDERED: HEPARIN SOD (PORCINE) 1000 UNIT/ML SDV IV PRN (13:45)
[2020-02-29] MEDS: ENOXAPARIN SOD INJ 40 MG/0.4 ML SYR SC SCH (16:56)
[2020-02-29] MEDS: ACETAMINOPHEN 325 MG TAB PO PRN (17:58)
[2020-02-29] MEDS: SIMVASTATIN 20 MG TAB PO SCH (21:24)
[2020-02-29] MEDS: ATENOLOL 100 MG TAB PO SCH (21:25)
[2020-02-29] MEDS: INSULIN GLARGINE 100 UNITS/ML VIAL SQ SCH (21:25)
[2020-03-01] VITALS (7 sets, daily range): BP systolic 131–152; BP diastolic 67–75
[2020-03-01] MEDS: ALBUTEROL/IPRATROPIUM 3 ML NEB NEB SCH ×5 (01:00→23:45)
[2020-03-01] MEDS: NIFEDIPINE CR 30 MG TAB PO SCH (05:45)
[2020-03-01] MEDS: LEVOTHYROXINE SODIUM 100 MCG TAB PO SCH (05:45)
[2020-03-01] MEDS: INSULIN LISPRO 100 UNIT/1 ML 3ML VIAL SQ SCH ×4 (07:30→20:28)
[2020-03-01] MEDS ORDERED: CALCIUM CARBONATE 500 MG CHEWABLE TABS PO PRN (09:45)
[2020-03-01] MEDS: HYDRALAZINE HCL 25 MG TAB PO SCH ×3 (09:47→20:28)
[2020-03-01] MEDS: SITAGLIPTIN 100 MG TAB PO SCH (09:47)
[2020-03-01] MEDS: ASPIRIN 81 MG CHEW TAB PO SCH (09:47)
[2020-03-01] MEDS: FUROSEMIDE INJ 10 MG/ML 2 ML VIAL IV SCH (09:47)
[2020-03-01] MEDS: FAMOTIDINE 20 MG TAB PO SCH ×2 (12:56→16:44)
--- NOTE | 2020-03-01 14:33 | Progress Note ---
DATE: Renal Progress Note SUBJECTIVE: Events over the past 24 hours have been noted. The patient underwent ultrafiltration yesterday, 3.5 L were removed. OBJECTIVE: VITAL SIGNS: Blood pressure 152/73, pulse 86, and afebrile. GENERAL: The patient still has anasarca. HEENT: No increased JVD. CARDIOVASCULAR: Regular rate and rhythm. LUNGS: Decreased breath sounds. ABDOMEN: Decreased bowel sounds. EXTREMITIES: Edema all over. LABORATORY RESULTS: BUN and creatinine 31 and 1.86 respectively. Electrolytes within normal limits. IMPRESSION/PLAN: 1. Diabetic nephropathy. 2. Nephrotic range proteinuria. 3. Fluid overload. 4. Anasarca. 5. Chronic kidney disease. PLAN: There will not be any ultrafiltration today, but I will have her ultrafiltered tomorrow. We will try to take off maybe 4 L. We will do longer ultrafiltration maybe 4 hours, so that we can gently take off 4 L. At some point during this hospitalization, she may need a kidney biopsy. Ather MD JOYCE Brown/JUAN MANUEL /[id number]
[2020-03-01] MEDS: INSULIN GLARGINE 100 UNITS/ML VIAL SQ SCH (20:28)
[2020-03-01] MEDS: ATENOLOL 100 MG TAB PO SCH (20:28)
[2020-03-01] MEDS: SIMVASTATIN 20 MG TAB PO SCH (20:28)
[2020-03-02] VITALS (7 sets, daily range): BP systolic 139–161; BP diastolic 65–81
[2020-03-02] MEDS: NIFEDIPINE CR 30 MG TAB PO SCH (06:06)
[2020-03-02] MEDS: LEVOTHYROXINE SODIUM 100 MCG TAB PO SCH (06:06)
[2020-03-02] MEDS: ALBUTEROL/IPRATROPIUM 3 ML NEB NEB SCH ×4 (06:30→19:06)
[2020-03-02] MEDS: INSULIN LISPRO 100 UNIT/1 ML 3ML VIAL SQ SCH ×4 (07:30→21:00)
[2020-03-02] MEDS: FAMOTIDINE 20 MG TAB PO SCH ×2 (08:04→17:36)
[2020-03-02] MEDS: HYDRALAZINE HCL 25 MG TAB PO SCH ×3 (08:05→21:03)
[2020-03-02] MEDS: FUROSEMIDE INJ 10 MG/ML 2 ML VIAL IV SCH (08:05)
[2020-03-02] MEDS: ASPIRIN 81 MG CHEW TAB PO SCH (08:05)
[2020-03-02] MEDS: SITAGLIPTIN 100 MG TAB PO SCH (08:05)
[2020-03-02] MEDS: FLUTICASONE PROPIONATE NASAL SPRAY NS SCH ×2 (12:29→17:36)
[2020-03-02] MEDS: BENZONATATE 100 MG CAP PO SCH ×3 (12:29→21:03)
[2020-03-02] MEDS: SALINE 0.65% NAS SOLN 1 SPRAY BTL SCH ×3 (12:29→21:02)
--- NOTE | 2020-03-02 18:03 | Progress Note ---
DATE: Renal Progress Note SUBJECTIVE: Events over the past 24 hours have been noted and the patient underwent an ultrafiltration session today. PHYSICAL EXAMINATION: VITAL SIGNS: Blood pressure 156/77, pulse 52, afebrile. GENERAL: The patient is morbidly obese. HEENT: No increased JVD. The patient has a Reginaldo catheter in the right chest wall area. CARDIOVASCULAR: Regular rhythm. LUNGS: Decreased breath sounds at the bases bilaterally. ABDOMEN: The patient is obese. EXTREMITIES: 3+ edema all over. LABORATORY RESULTS: Sodium 135, potassium 4.5, chloride 99, bicarbonate 25, BUN and creatinine 21 and 1.8 respectively. Hemoglobin, hematocrit 10.5 and 33 respectively. IMPRESSION: 1. Fluid overload. 2. Diabetes. 3. Diabetic nephropathy. 4. Nephrotic range proteinuria. PLAN: The patient underwent ultrafiltration today, 4 L were removed. We will ultrafilter again tomorrow as well. Probably later on this week, I am going to schedule her for a kidney biopsy just to make sure that there is nothing else going on with the kidneys other than diabetic nephropathy. I want to rule out any primary glomerulonephritis. I have discussed this with the patient, the risks and benefits of the kidney biopsy, the patient is ready to proceed. She wants me to liberalize her fluid intake from 1.2 L to 1.5. I have agreed to that. Ather MD JOYCE Brown/JUAN MANUEL /[id number]
[2020-03-02] MEDS: ACETAMINOPHEN 325 MG TAB PO PRN (20:55)
[2020-03-02] MEDS: INSULIN GLARGINE 100 UNITS/ML VIAL SQ SCH (21:00)
[2020-03-02] MEDS: ATENOLOL 100 MG TAB PO SCH (21:03)
[2020-03-02] MEDS: SIMVASTATIN 20 MG TAB PO SCH (21:03)
[2020-03-03] VITALS (8 sets, daily range): BP systolic 141–160; BP diastolic 60–83
[2020-03-03] MEDS: ALBUTEROL/IPRATROPIUM 3 ML NEB NEB SCH ×4 (01:00→18:25)
[2020-03-03] MEDS: NIFEDIPINE CR 30 MG TAB PO SCH (06:47)
[2020-03-03] MEDS: LEVOTHYROXINE SODIUM 100 MCG TAB PO SCH (06:47)
[2020-03-03] MEDS: FAMOTIDINE 20 MG TAB PO SCH ×4 (07:30→17:00)
[2020-03-03] MEDS: INSULIN LISPRO 100 UNIT/1 ML 3ML VIAL SQ SCH ×4 (07:30→21:00)
[2020-03-03] MEDS ORDERED: SODIUM CHLORIDE 0.9% 1000ML 2,000 ML ONE (08:12)
[2020-03-03] MEDS: SITAGLIPTIN 100 MG TAB PO SCH (09:00)
[2020-03-03] MEDS: SALINE 0.65% NAS SOLN 1 SPRAY BTL SCH ×4 (09:00→22:52)
[2020-03-03] MEDS: BENZONATATE 100 MG CAP PO SCH ×4 (09:00→22:56)
[2020-03-03] MEDS: ASPIRIN 81 MG CHEW TAB PO SCH (09:00)
[2020-03-03] MEDS: HYDRALAZINE HCL 25 MG TAB PO SCH ×3 (09:00→22:57)
[2020-03-03] MEDS: FLUTICASONE PROPIONATE NASAL SPRAY NS SCH ×2 (09:00→17:00)
[2020-03-03] MEDS: FUROSEMIDE INJ 10 MG/ML 2 ML VIAL IV SCH ×5 (09:30→22:55)
[2020-03-03] MEDS: ACETAMINOPHEN 325 MG TAB PO PRN (16:04)
--- NOTE | 2020-03-03 17:00 | NUR ---
ORDERS RECEIVED FROM DR. GALINDO TO PLACE IR CONSULT FOR CT GUIDED KIDNEY BIOPSY. CALL PLACED TO IR AND MADE STEFANIE AWARE THAT PT HAD ASA 81 MG PO THIS AM. STEFANIE STATED BIOPSY CAN BE DONE 03/09/2020 AFTER ASA WASHOUT.
--- NOTE | 2020-03-03 17:18 | Progress Note ---
DATE: 03/03/2020 Renal Progress Note SUBJECTIVE: Events over the 24 hours have been noted. I am seeing the patient while she is undergoing ultrafiltration. PHYSICAL EXAMINATION: VITAL SIGNS: Blood pressure 141/76, pulse 85, and respiration 20. GENERAL: The patient is in no acute distress. HEENT: The patient has a Reginaldo catheter in her right neck area. CARDIOVASCULAR: Regular rhythm. LUNGS: Decreased breath sounds at the bases bilaterally. ABDOMEN: Positive bowel sounds. EXTREMITIES: The patient still has a lot of edema of the arms and legs, but edema is going down. IMPRESSION/PLAN: 1. Anasarca. 2. Diabetes. 3. Diabetic nephropathy. 4. Nephrotic range proteinuria. 5. Fluid overload. PLAN: The patient is getting ultrafiltration today. She is getting ultrafilter for 3.5 hours and we are going to remove 4 L by the end of the session. I have discussed doing a CT-guided kidney biopsy with the patient. She is on a baby aspirin right now. I explained to her why we are doing the kidney biopsy, to rule out any other glomerulonephritis that might be causing nephrotic syndrome other than diabetic nephropathy and especially given her young age. I have also explained the risks of doing a kidney biopsy. She agrees to proceed and also I have told her that the radiologist, who will do the procedure will also explain to her more about the procedure. She should undergo ultrafiltration tomorrow also. Ather MD JOYCE Brown/JUAN MANUEL /[id number]
[2020-03-03] MEDS: ATENOLOL 100 MG TAB PO SCH (22:56)
[2020-03-03] MEDS: SIMVASTATIN 20 MG TAB PO SCH (22:56)
[2020-03-04] VITALS (9 sets, daily range): BP systolic 128–161; BP diastolic 53–77
[2020-03-04] MEDS: ALBUTEROL/IPRATROPIUM 3 ML NEB NEB SCH ×4 (01:00→18:55)
[2020-03-04] MEDS: INSULIN GLARGINE 100 UNITS/ML VIAL SQ SCH ×2 (03:48→21:05)
[2020-03-04] MEDS: NIFEDIPINE CR 30 MG TAB PO SCH (06:08)
[2020-03-04] MEDS: LEVOTHYROXINE SODIUM 100 MCG TAB PO SCH (06:08)
[2020-03-04 06:17] LABS: BASOPHILS # (AUTO) 0.1 (0.0-0.1); BASOPHILS % 1.1 % (0.0-1.0); EOSINOPHILS # (AUTO) 0.4 (0.0-0.4); EOSINOPHILS % 4.7 % (0.0-6.0); HEMATOCRIT 30.3 % (34.2-44.1); HEMOGLOBIN 9.5 g/dL (12.0-16.0); LYMPHOCYTES # (AUTO) 0.8 (1.0-3.2); LYMPHOCYTES % 11.1 % (18.0-39.1); MEAN CORPUSCULAR HEMOGLOBIN 26.7 pg (28-32); MEAN CORPUSCULAR HGB CONC 31.4 g/dL (31-35); MEAN CORPUSCULAR VOLUME 85.1 fL (81-99); MONOCYTES # (AUTO) 0.9 (0.2-0.8); MONOCYTES % 12.7 % (4.4-11.3); NEUTROPHILS # (AUTO) 5.2 (2.1-6.9); NEUTROPHILS % 69.9 % (38.7-80.0); PLATELET COUNT 212 x10e3/uL (140-360); RED BLOOD COUNT 3.56 x10e6/uL (3.6-5.1); RED CELL DISTRIBUTION WIDTH 14.8 % (11.7-14.4)
[2020-03-04 06:41] LABS: ANION GAP 15.6 mmol/L (8-16); CALCIUM 8.8 mg/dL (8.4-10.2); CREATININE, SERUM 2.23 mg/dL (0.57-1.11); POTASSIUM 4.6 mmol/L (3.5-5.1)
--- NOTE | 2020-03-04 06:45 | NUR ---
Patient endorsed to next shift for continuity of care.
--- NOTE | 2020-03-04 07:04 | NUR ---
bedside shift report received PM nurse. pt sleeping, respirations even and nonlabored. no s/s distress. in stable condition.
[2020-03-04] MEDS: INSULIN LISPRO 100 UNIT/1 ML 3ML VIAL SQ SCH ×5 (07:30→21:05)
[2020-03-04] MEDS: HYDRALAZINE HCL 25 MG TAB PO SCH ×3 (09:00→20:59)
[2020-03-04] MEDS: ACETAMINOPHEN 325 MG TAB PO PRN (11:00)
[2020-03-04] MEDS: FAMOTIDINE 20 MG TAB PO SCH ×2 (11:02→17:30)
[2020-03-04] MEDS: FLUTICASONE PROPIONATE NASAL SPRAY NS SCH ×2 (11:04→17:25)
[2020-03-04] MEDS: FUROSEMIDE INJ 10 MG/ML 2 ML VIAL IV SCH (11:04)
[2020-03-04] MEDS: SALINE 0.65% NAS SOLN 1 SPRAY BTL SCH ×3 (11:05→20:58)
[2020-03-04] MEDS: SITAGLIPTIN 100 MG TAB PO SCH (11:05)
[2020-03-04] MEDS: BENZONATATE 100 MG CAP PO SCH ×3 (11:05→21:00)
--- NOTE | 2020-03-04 19:10 | NUR ---
RECEIVED BEDSIDE SHIFT REPORT FROM PREVIOUS NURSE. CALL LIGHT WITHIN REACH. PATIENT IN BED.
--- NOTE | 2020-03-04 19:59 | Progress Note ---
DATE: Renal Progress Note. Events over the past 24 hours have been noted. The patient underwent ultrafiltration session today. PHYSICAL EXAMINATION: The patient's urine output in the last 24 hours she has had about 700 mL of urine output. Intake and output for the last 24 hours, 2372 in and 6800 out. She is negative for 0.4 L. GENERAL: The patient is obese. CARDIOVASCULAR: Regular rate and rhythm. LUNGS: Decreased breath sounds bilaterally. ABDOMEN: Positive bowel sounds. EXTREMITIES: The patient still has edema of the legs, however, edema has decreased. LABORATORY RESULTS: Sodium 135, potassium 4.6, chloride 101, bicarbonate 23, BUN and creatinine 37 and 2.23 respectively. White count 7.4, hemoglobin and hematocrit 9.5 and 30.3 respectively, platelet count 212,000. IMPRESSION: 1. Anasarca. 2. Diabetes. 3. Diabetic nephropathy. 4. Nephrotic range proteinuria. 5. Fluid overload. PLAN: The patient underwent ultrafiltration today, 4 L were removed, also 4 L were removed yesterday. The patient is getting IV Lasix. The patient required a CT-guided kidney biopsy, right now the nurse says that the intervention radiologist given Monday as the tentative date for the biopsy. I have asked her to see if we can do the kidney biopsy sooner this week. The patient is on Lasix 40 mg IV three times a day. I will decrease to just once a day. Discuss her creatinine is starting to go up. Ather MD JOYCE Brown/JUAN MANUEL /[id number]
[2020-03-04] MEDS: SIMVASTATIN 20 MG TAB PO SCH (21:00)
[2020-03-04] MEDS: ATENOLOL 100 MG TAB PO SCH (21:00)
[2020-03-05] VITALS (8 sets, daily range): BP systolic 121–167; BP diastolic 59–86
[2020-03-05] MEDS: ALBUTEROL/IPRATROPIUM 3 ML NEB NEB SCH ×4 (00:20→14:01)
--- NOTE | 2020-03-05 01:30 | NUR ---
GAVE REPORT TO CLOVER. PATIENT IN BED. PATIENT IN NO PAIN OR DISTRESS. GLASS DRAINING WELL. CALL LIGHT WITHIN REACH.
--- NOTE | 2020-03-05 01:32 | NUR ---
Received report from Susan Hudson.angel in place.sitting in the bed.bed alarm on.call light within reach.tele in place.
--- NOTE | 2020-03-05 02:20 | NUR ---
Patient is crying and shouting to remove ortiz.pt c/o pain to urethra.pulled out folley.catheter tip is intact.notified to charge nurse.
--- NOTE | 2020-03-05 03:00 | NUR ---
Voided few drops of urine after removal of urine.
--- NOTE | 2020-03-05 04:00 | NUR ---
Left message to answering service of regarding ortiz removal.
[2020-03-05] MEDS: ACETAMINOPHEN 325 MG TAB PO PRN ×2 (05:52→21:15)
[2020-03-05] MEDS: NIFEDIPINE CR 30 MG TAB PO SCH (06:00)
[2020-03-05] MEDS: LEVOTHYROXINE SODIUM 100 MCG TAB PO SCH (06:30)
--- NOTE | 2020-03-05 06:47 | NUR ---
Voided 100 ml of urine.bed aide shift report given to oncoming Rn.stable condition.
[2020-03-05] MEDS: INSULIN LISPRO 100 UNIT/1 ML 3ML VIAL SQ SCH ×4 (07:30→21:00)
[2020-03-05 07:36] LABS: ANION GAP 14.6 mmol/L (8-16); CALCIUM 8.7 mg/dL (8.4-10.2); CREATININE, SERUM 2.27 mg/dL (0.57-1.11); POTASSIUM 4.6 mmol/L (3.5-5.1)
[2020-03-05] MEDS: FLUTICASONE PROPIONATE NASAL SPRAY NS SCH ×2 (09:00→17:00)
[2020-03-05] MEDS: SALINE 0.65% NAS SOLN 1 SPRAY BTL SCH ×3 (09:00→21:13)
[2020-03-05] MEDS ORDERED: FUROSEMIDE INJ 10 MG/ML 2 ML VIAL IV SCH (09:00)
[2020-03-05] MEDS: SITAGLIPTIN 100 MG TAB PO SCH (09:25)
[2020-03-05] MEDS: BENZONATATE 100 MG CAP PO SCH ×3 (09:25→21:13)
[2020-03-05] MEDS: FUROSEMIDE INJ 10 MG/ML 4 ML VIAL IV SCH (09:25)
[2020-03-05] MEDS: HYDRALAZINE HCL 25 MG TAB PO SCH ×3 (09:25→21:13)
[2020-03-05] MEDS: FAMOTIDINE 20 MG TAB PO SCH ×2 (09:25→17:29)
--- NOTE | 2020-03-05 12:53 | Progress Note ---
DATE: 03/05/2020 Renal Progress Note SUBJECTIVE: Events over the past 24 hours have been noted. Last night around 2 or 3 a.m., the patient was complaining of her Servin catheter. She wanted to be taken out immediately, so the catheter was taken out. The patient is undergoing ultrafiltration at this time. PHYSICAL EXAMINATION: VITAL SIGNS: Blood pressure 167/86, pulse 85, respirations 18. Intake and output, the patient's intake had been 1360. Her output had been 2100. However, she was also ultrafiltrate 4 L, so if you include the dialysis output and the urine output, total is 6100, so she is in a negative 4.7 L fluid balance. The patient remains with anasarca, however, it is much, much improved. CARDIOVASCULAR: Regular rate and rhythm. LUNGS: Decreased breath sounds bilaterally. ABDOMEN: Positive bowel sounds. EXTREMITIES: Edema of the legs and arms. LABORATORY RESULTS: Platelet count is 204,000, hemoglobin is 9.5. Sodium 134, potassium 4.5, chloride 100, bicarb 24, BUN and creatinine 39 and 2.27 respectively. IMPRESSION: 1. Anasarca. 2. Diabetes. 3. Diabetic nephropathy. 4. Nephrotic range proteinuria. 5. Fluid overload. PLAN: The patient is undergoing ultrafiltration 4 L today and IV Lasix have cut back to 40 mg IV daily. The patient is scheduled for Monday for CT-guided kidney biopsy could be done sooner, but Monday is the earliest it could be done. Likely, I will give her a break tomorrow from ultrafiltration and resume again on Monday. The patient is eager to be discharged from the hospital. MD JOYCE Uribe/JUAN MANUEL /[id number]
--- NOTE | 2020-03-05 18:22 | NUR ---
JORGE Vallejo with cardiology rounded. Pt asked if telemetry box could be discontinued, [employer] told the patient that it could not be discontinued and that she still needed cardiac monitoring. Pt removed the telemetry box after the [employer] left and stated to the nurse that she is not wearing it anymore. pt education rendered, pt still refusing to wear tele box.
--- NOTE | 2020-03-05 18:50 | NUR ---
RECEIVED BEDSIDE SHIFT REPORT FROM PREVIOUS NURSE. CALL LIGHT WITHIN REACH. PATIENT SITTING IN THE RECLINER. PATIENT IN NO PAIN OR DISTRESS
[2020-03-05] MEDS: ATENOLOL 100 MG TAB PO SCH (21:13)
[2020-03-05] MEDS: SIMVASTATIN 20 MG TAB PO SCH (21:13)
[2020-03-05] MEDS: INSULIN GLARGINE 100 UNITS/ML VIAL SQ SCH (23:43)
[2020-03-06] VITALS (7 sets, daily range): BP systolic 139–169; BP diastolic 56–98
[2020-03-06] MEDS: ALBUTEROL/IPRATROPIUM 3 ML NEB NEB SCH ×4 (01:30→19:00)
[2020-03-06] MEDS: LEVOTHYROXINE SODIUM 100 MCG TAB PO SCH (05:59)
[2020-03-06] MEDS: NIFEDIPINE CR 30 MG TAB PO SCH (06:36)
--- NOTE | 2020-03-06 07:21 | NUR ---
GAVE BEDSIDE SHIFT REPORT TO ONCOMING NURSE. CALL LIGHT WITHIN REACH. PATIENT IN BED. HOURLY ROUNDING PERFORMED.
[2020-03-06] MEDS: FAMOTIDINE 20 MG TAB PO SCH ×2 (07:30→16:23)
[2020-03-06] MEDS: INSULIN LISPRO 100 UNIT/1 ML 3ML VIAL SQ SCH ×4 (07:30→21:00)
[2020-03-06] MEDS: SALINE 0.65% NAS SOLN 1 SPRAY BTL SCH ×3 (08:21→21:00)
[2020-03-06] MEDS: FLUTICASONE PROPIONATE NASAL SPRAY NS SCH ×2 (08:21→16:23)
--- NOTE | 2020-03-06 08:47 | NUR ---
PATIENT IS REFUSING TELEMETRY. PT EDUCATION RENDERED
[2020-03-06] MEDS: BENZONATATE 100 MG CAP PO SCH ×3 (09:00→21:00)
[2020-03-06] MEDS: HYDRALAZINE HCL 25 MG TAB PO SCH ×3 (09:00→21:00)
[2020-03-06] MEDS: SITAGLIPTIN 100 MG TAB PO SCH (09:00)
[2020-03-06] MEDS: FUROSEMIDE INJ 10 MG/ML 4 ML VIAL IV SCH (09:00)
[2020-03-06] MEDS: HYDRALAZINE HCL 25 MG TAB PO PRN (13:03)
--- NOTE | 2020-03-06 14:41 | NUR ---
Nutrition Screen Note RD Recommendation for Physician: -Recommend adding ADA diet to diet order Plan of Care: RD following, monitoring for tolerance and adequacy Nutrition reason for involvement: follow up Primary Diagnose(s): CHF, hypertensive urgency PMH: Diabetes type 2, on insulin therapy, Morbid obesity, Congestive heart failure, Hypertension, Dyslipidemia, Smoker with COPD Ht:67 in Wt: 328.06 lbs (03/04) 348 lb (02/22) Suspect weight error or fluid related BMI:51.4 kg/m2 IBW:[address] Assessment: 03/06: Follow up. Chart reviewed. Pt continues to be eating well with 75-100% meal intake recorded. Will continue to monitor. 02/28/20: Follow up. Chart reviewed. It is recorded that pt is consuming 100% of meals. Will continue to monitor. (02/24/20) Chart reviewed. Labs and meds reviewed. Pt is a 44 year old female admitted with CHF and hypertensive urgency. Pt is currently NPO. Pt reports she has been eating about 50% of her meals. It is recorded that pt consumed 75% of her dinner meal yesterday. Pt stated she has gained weight due to fluid and usually weighs ~ 250-270 lbs without excess fluid. Pt mentioned weight of 348 lbs in chart is not accurate. No N/V, but pt reports occasional diarrhea. No chewing/swallowing issues. Will continue to monitor Current Diet: cardiac Malnutrition Evaluation (03/06/20) The patient does not meet criteria for a specified degree of malnutrition at this time. Will re-evaluate at follow-up as appropriate. Energy intake: Adequate PO intake documented Weight loss: No weight loss reported Fat loss: no loss identified Muscle loss: no loss identified Supporting Evidence: Fluid accumulation: edema of legs and arms Functional Status: unable to evaluate Diet Education Needs Assessment: (02/24/20) Diet education indicated, RD discussed and provided written materials regarding following a low sodium diet due to CHF. Pt also requested diabetic diet education materials which were provided but pt stated she did not need verbal explanation at this time Learner(s): pt Barriers: no barriers identified Cultural/Language Modifications: no cultural/language modifications Readiness: eager/acceptance Method: explanation/discussion/handout Topics: heart failure medical nutrition therapy (low sodium) Carbohydrate counting and reading the food label written materials provided only (pt stated she did not need verbal explanation) Understanding/Compliance: pt verbalized understanding of low sodium diet for CHF Nutrition Care Level: low (pt is eating well) Signed: Meenakshi Burns RD, LD
[2020-03-06 16:27] LABS: BASOPHILS # (AUTO) 0.1 (0.0-0.1); BASOPHILS % 0.9 % (0.0-1.0); EOSINOPHILS # (AUTO) 0.3 (0.0-0.4); EOSINOPHILS % 3.9 % (0.0-6.0); HEMATOCRIT 31.5 % (34.2-44.1); HEMOGLOBIN 9.9 g/dL (12.0-16.0); LYMPHOCYTES % 11.8 % (18.0-39.1); MEAN CORPUSCULAR HEMOGLOBIN 26.2 pg (28-32); MEAN CORPUSCULAR HGB CONC 31.4 g/dL (31-35); MEAN CORPUSCULAR VOLUME 83.3 fL (81-99); MONOCYTES # (AUTO) 0.9 (0.2-0.8); MONOCYTES % 10.7 % (4.4-11.3); NEUTROPHILS # (AUTO) 6.3 (2.1-6.9); NEUTROPHILS % 72.1 % (38.7-80.0); PLATELET COUNT 227 x10e3/uL (140-360); RED BLOOD COUNT 3.78 x10e6/uL (3.6-5.1); RED CELL DISTRIBUTION WIDTH 14.8 % (11.7-14.4)
[2020-03-06 16:43] LABS: ANION GAP 17.7 mmol/L (8-16); CALCIUM 8.8 mg/dL (8.4-10.2); CREATININE, SERUM 2.22 mg/dL (0.57-1.11); POTASSIUM 4.7 mmol/L (3.5-5.1)
--- NOTE | 2020-03-06 18:49 | Progress Note ---
DATE: 03/06/2020 Renal Progress Note SUBJECTIVE: Events over the past 24 hours have been noted. The patient states that the ultrafiltration began several days ago. She feels a lot better. She states she is actually able to lie down flat now. PHYSICAL EXAMINATION: VITAL SIGNS: Blood pressure 169/70, pulse 65, afebrile. GENERAL: The patient is morbidly obese. HEENT: No increased JVD. The patient has a Reginaldo catheter in the right neck area. CARDIOVASCULAR: Regular rate and rhythm. LUNGS: Decreased breath sounds. ABDOMEN: Positive bowel sounds. EXTREMITIES: The patient has edema, but it is significantly decreased from admission. LABORATORY RESULTS: Sodium 134, potassium 4.6, chloride 100, bicarb 24. BUN and creatinine 39 and 2.27 respectively. Hemoglobin and hematocrit 9.5 and 30.3 respectively. IMPRESSION AND PLAN: 1. Anasarca. 2. Diabetes. 3. Diabetic nephropathy. 4. Nephrotic range proteinuria. 5. Fluid overload. The patient underwent ultrafiltration today at 3.5 L were ultrafilter. I will ultrafilter the patient tomorrow also. We will try to check off another 3 [address]-guided kidney biopsy will not be done on Monday because Monday is a holiday, it will be done Monday morning; and the patient is pleading to go home as quickly as possible right after the biopsy, so if need be probably I will have the Reginaldo catheter removed on Monday and then probably after watching her overnight on Monday, she may be able to go home, but that still remains to be seen. I will continue to follow the patient. Ather MD KING Hyde/JUAN MANUEL /[id number]
--- NOTE | 2020-03-06 19:21 | NUR ---
Received change of shift report from AM nurse. Walking rounds completed.
[2020-03-06] MEDS: SIMVASTATIN 20 MG TAB PO SCH (21:00)
[2020-03-06] MEDS: ATENOLOL 100 MG TAB PO SCH (21:00)
[2020-03-06] MEDS: INSULIN GLARGINE 100 UNITS/ML VIAL SQ SCH (21:00)
[2020-03-07] VITALS (7 sets, daily range): BP systolic 134–166; BP diastolic 54–77
[2020-03-07] MEDS: ALBUTEROL/IPRATROPIUM 3 ML NEB NEB SCH ×5 (00:45→19:20)
[2020-03-07] MEDS: ACETAMINOPHEN 325 MG TAB PO PRN ×2 (03:59→19:46)
--- NOTE | 2020-03-07 05:19 | NUR ---
Patient resting quitly at this time. Continue monitor.
[2020-03-07] MEDS: NIFEDIPINE CR 30 MG TAB PO SCH (05:20)
[2020-03-07] MEDS: LEVOTHYROXINE SODIUM 100 MCG TAB PO SCH (05:21)
[2020-03-07] MEDS: INSULIN LISPRO 100 UNIT/1 ML 3ML VIAL SQ SCH ×4 (07:30→20:50)
[2020-03-07] MEDS: FUROSEMIDE INJ 10 MG/ML 4 ML VIAL IV SCH (09:00)
[2020-03-07] MEDS: HYDRALAZINE HCL 25 MG TAB PO SCH ×3 (09:00→20:49)
[2020-03-07] MEDS: FLUTICASONE PROPIONATE NASAL SPRAY NS SCH ×2 (09:05→16:52)
[2020-03-07] MEDS: FAMOTIDINE 20 MG TAB PO SCH ×2 (09:05→15:31)
[2020-03-07] MEDS: SALINE 0.65% NAS SOLN 1 SPRAY BTL SCH ×3 (09:05→20:49)
[2020-03-07] MEDS: BENZONATATE 100 MG CAP PO SCH ×3 (09:06→20:50)
[2020-03-07] MEDS: SITAGLIPTIN 100 MG TAB PO SCH (09:06)
[2020-03-07] MEDS ORDERED: HEPARIN SOD (PORCINE) 1000 UNIT/ML SDV IV ONE (12:45)
[2020-03-07] MEDS: INSULIN GLARGINE 100 UNITS/ML VIAL SQ SCH (20:48)
[2020-03-07] MEDS: SIMVASTATIN 20 MG TAB PO SCH (20:50)
[2020-03-07] MEDS: ATENOLOL 100 MG TAB PO SCH (20:50)
[2020-03-08] VITALS (11 sets, daily range): BP systolic 110–160; BP diastolic 45–79
[2020-03-08] MEDS: ALBUTEROL/IPRATROPIUM 3 ML NEB NEB SCH ×4 (00:35→20:10)
[2020-03-08] MEDS: NIFEDIPINE CR 30 MG TAB PO SCH (05:15)
[2020-03-08] MEDS: LEVOTHYROXINE SODIUM 100 MCG TAB PO SCH (05:15)
[2020-03-08] MEDS: ACETAMINOPHEN 325 MG TAB PO PRN ×2 (07:15→15:36)
[2020-03-08] MEDS: FAMOTIDINE 20 MG TAB PO SCH ×2 (07:18→15:42)
[2020-03-08] MEDS: INSULIN LISPRO 100 UNIT/1 ML 3ML VIAL SQ SCH ×4 (07:30→20:53)
[2020-03-08] MEDS: SALINE 0.65% NAS SOLN 1 SPRAY BTL SCH ×3 (08:30→20:52)
[2020-03-08] MEDS: FLUTICASONE PROPIONATE NASAL SPRAY NS SCH ×2 (08:31→15:45)
[2020-03-08] MEDS: SITAGLIPTIN 100 MG TAB PO SCH (08:31)
[2020-03-08] MEDS: HYDRALAZINE HCL 25 MG TAB PO SCH ×3 (08:31→20:52)
[2020-03-08] MEDS: BENZONATATE 100 MG CAP PO SCH ×3 (08:31→20:53)
[2020-03-08] MEDS: FUROSEMIDE INJ 10 MG/ML 4 ML VIAL IV SCH (11:19)
--- NOTE | 2020-03-08 19:00 | NUR ---
Resumed care of patient. Patient awake and sitting in recliner, respirations even and unlabored on room air, no s/s of distress at this time. Call light placed within reach, patient instructed to call for assistance if needed, verbalized understanding. All safety measures in place.
[2020-03-08] MEDS: ATENOLOL 100 MG TAB PO SCH (20:53)
[2020-03-08] MEDS: INSULIN GLARGINE 100 UNITS/ML VIAL SQ SCH (20:53)
[2020-03-08] MEDS: SIMVASTATIN 20 MG TAB PO SCH (20:53)
[2020-03-08] MEDS ORDERED: TEMAZEPAM 15 MG CAP PO PRN (21:00)
--- NOTE | 2020-03-08 22:15 | NUR ---
Handoff report given to oncoming nurse. Patient in stable condition, no s/s of distress at this time. All safety measures in place.
[2020-03-09] VITALS (7 sets, daily range): BP systolic 141–157; BP diastolic 53–80
[2020-03-09] MEDS: ALBUTEROL/IPRATROPIUM 3 ML NEB NEB SCH ×4 (00:50→19:35)
[2020-03-09] MEDS: LEVOTHYROXINE SODIUM 100 MCG TAB PO SCH (05:30)
[2020-03-09] MEDS: NIFEDIPINE CR 30 MG TAB PO SCH (05:30)
[2020-03-09] MEDS: INSULIN LISPRO 100 UNIT/1 ML 3ML VIAL SQ SCH ×4 (07:30→21:00)
[2020-03-09 08:14] LABS: BASOPHILS # (AUTO) 0.1 (0.0-0.1); BASOPHILS % 1.2 % (0.0-1.0); EOSINOPHILS # (AUTO) 0.4 (0.0-0.4); EOSINOPHILS % 4.7 % (0.0-6.0); HEMATOCRIT 31.7 % (34.2-44.1); LYMPHOCYTES # (AUTO) 1.4 (1.0-3.2); LYMPHOCYTES % 15.9 % (18.0-39.1); MEAN CORPUSCULAR HEMOGLOBIN 26.1 pg (28-32); MEAN CORPUSCULAR HGB CONC 31.5 g/dL (31-35); MEAN CORPUSCULAR VOLUME 82.8 fL (81-99); MONOCYTES # (AUTO) 1.1 (0.2-0.8); MONOCYTES % 12.4 % (4.4-11.3); NEUTROPHILS # (AUTO) 5.6 (2.1-6.9); NEUTROPHILS % 65.3 % (38.7-80.0); PLATELET COUNT 260 x10e3/uL (140-360); RED BLOOD COUNT 3.83 x10e6/uL (3.6-5.1); RED CELL DISTRIBUTION WIDTH 14.6 % (11.7-14.4)
[2020-03-09 08:37] LABS: ANION GAP 17.9 mmol/L (8-16); CALCIUM 8.9 mg/dL (8.4-10.2); CREATININE, SERUM 2.24 mg/dL (0.57-1.11); POTASSIUM 4.9 mmol/L (3.5-5.1)
[2020-03-09] MEDS: FAMOTIDINE 20 MG TAB PO SCH ×2 (08:47→16:30)
[2020-03-09] MEDS: SALINE 0.65% NAS SOLN 1 SPRAY BTL SCH ×3 (08:48→21:08)
[2020-03-09] MEDS: FLUTICASONE PROPIONATE NASAL SPRAY NS SCH ×2 (08:48→17:41)
[2020-03-09] MEDS: SITAGLIPTIN 100 MG TAB PO SCH (08:49)
[2020-03-09] MEDS: BENZONATATE 100 MG CAP PO SCH ×3 (08:49→21:08)
[2020-03-09] MEDS: HYDRALAZINE HCL 25 MG TAB PO SCH ×3 (09:00→21:08)
[2020-03-09] MEDS: FUROSEMIDE INJ 10 MG/ML 4 ML VIAL IV SCH (17:41)
--- NOTE | 2020-03-09 18:01 | Progress Note ---
DATE: 03/09/2020 Renal Progress Note SUBJECTIVE: Events over the past 24 hours have been noted. She has no chest pain or shortness of breath. PHYSICAL EXAMINATION: VITAL SIGNS: Blood pressure 145/65, pulse 74, and afebrile. GENERAL: The patient is morbidly obese. HEENT: No increased JVD. CARDIOVASCULAR: Regular rhythm. LUNGS: Decreased breath sounds. ABDOMEN: Decreased bowel sounds. EXTREMITIES: The patient has edema of the arms and legs, but it is decreased. LABORATORY RESULTS: Hemoglobin and hematocrit 10 and 31 respectively, platelet count 260,000. Sodium 133, potassium 4.9, chloride 111, carbon dioxide 19, BUN and creatinine 36 and 3.24 respectively. IMPRESSION AND PLAN: 1. Anasarca. 2. Diabetes. 3. Diabetic nephropathy. 4. Nephrotic range proteinuria. 5. Fluid overload. The patient will undergo ultrafiltration today. We will ultrafilter her for 3 to 3-1/2 hours. We will try to take off 3 to 4 L. She will have a CT-guided kidney biopsy, will be done tomorrow. Also at that time, I will arrange to have the Reginaldo catheter removed. The patient is wanting to go home very soon after the biopsy. Ather MD JOYCE Brown/JUAN MANUEL /[id number]
[2020-03-09] MEDS ORDERED: HEPARIN SOD (PORCINE) 1000 UNIT/ML SDV IV PRN (18:30)
[2020-03-09] MEDS: INSULIN GLARGINE 100 UNITS/ML VIAL SQ SCH (21:00)
[2020-03-09] MEDS: SIMVASTATIN 20 MG TAB PO SCH (21:08)
[2020-03-09] MEDS: ATENOLOL 100 MG TAB PO SCH (21:08)
[2020-03-10] VITALS (9 sets, daily range): BP systolic 140–167; BP diastolic 55–78
[2020-03-10] MEDS: ALBUTEROL/IPRATROPIUM 3 ML NEB NEB SCH ×4 (00:15→19:00)
[2020-03-10] MEDS: NIFEDIPINE CR 30 MG TAB PO SCH (06:00)
[2020-03-10] MEDS: LEVOTHYROXINE SODIUM 100 MCG TAB PO SCH (06:00)
[2020-03-10] MEDS: INSULIN LISPRO 100 UNIT/1 ML 3ML VIAL SQ SCH ×4 (07:30→21:00)
[2020-03-10] MEDS: FAMOTIDINE 20 MG TAB PO SCH ×2 (07:30→16:37)
[2020-03-10] MEDS: SITAGLIPTIN 100 MG TAB PO SCH (08:13)
[2020-03-10] MEDS: BENZONATATE 100 MG CAP PO SCH ×3 (09:00→21:00)
[2020-03-10] MEDS: FLUTICASONE PROPIONATE NASAL SPRAY NS SCH ×2 (09:00→16:05)
[2020-03-10] MEDS: ASPIRIN 81 MG CHEW TAB PO SCH (09:00)
[2020-03-10] MEDS: FUROSEMIDE INJ 10 MG/ML 4 ML VIAL IV SCH (09:00)
[2020-03-10] MEDS: HYDRALAZINE HCL 25 MG TAB PO SCH ×2 (09:00→16:05)
[2020-03-10] MEDS: SALINE 0.65% NAS SOLN 1 SPRAY BTL SCH ×3 (09:00→21:00)
[2020-03-10] MEDS ORDERED: FENTANYL CITRATE/PF 100MCG/2 ML INJ ONE (09:39)
[2020-03-10] MEDS ORDERED: MIDAZOLAM HCL 2 MG/2 ML VIAL ONE (09:39)
[2020-03-10] MEDS ORDERED: HYDRALAZINE HCL 20 MG/ML VIAL ONE (10:20)
--- NOTE | 2020-03-10 11:04 | Diagnostic Imaging Report ---
PROCEDURE: CT-guided nonfocal renal biopsy Procedural Personnel Attending physician(s): Dago Vides MD Fellow physician(s): None Resident physician(s): None Advanced practice provider(s): None Pre-procedure diagnosis: Acute kidney injury Post-procedure diagnosis: Same Indication: Organ dysfunction Previous biopsy of same target (QCDR): No Additional clinical history: None Complications: No immediate complications. IMPRESSION: CT-guided nonfocal biopsy of right renal cortex. Plan: Specimen(s) sent for evaluation. PROCEDURE SUMMARY: - Percutaneous CT-guided coaxial core needle biopsy - Additional procedure(s): None PROCEDURE DETAILS: Pre-procedure Reference imaging for biopsy target: CT abdomen/pelvis 02/26/2020 Consent: Informed consent for the procedure including risks, benefits and alternatives was obtained and time-out was performed prior to the procedure. Preparation: The site was prepared and draped using maximal sterile barrier technique including cutaneous antisepsis. Anesthesia/sedation Level of anesthesia/sedation: Moderate sedation (conscious sedation) 2mg Versed, 100mcg fentanyl Anesthesia/sedation administered by: Independent trained observer under attending supervision with continuous monitoring of the patient?s level of consciousness and physiologic status Total intra-service sedation time (minutes): 30 Imaging prior to biopsy The patient was positioned prone. Initial imaging was performed using noncontrast CT. Biopsy target: - Maximal diameter (cm): NA - Location: Right renal cortex Other findings: None Biopsy Local anesthesia was administered. Under CT guidance, the biopsy needle was advanced to the target and biopsy was performed. Coaxial needle: 17g Core needle biopsy device: Great Dream Core needle size: 18g Number of core specimens: 4 Needle removal The biopsy needle was removed and a sterile dressing was applied. Tract embolization: Gelfoam slurry Imaging following biopsy Immediate post-biopsy imaging was performed using noncontrast CT. Post-biopsy imaging findings: No hematoma Contrast Contrast agent: None Contrast volume (mL): [address] dose length product (mGy-cm): 2252 Additional Details Additional description of procedure: None Equipment details: None Specimens removed: Biopsy samples as detailed above Estimated blood loss (mL): Less than 10 Standardized report: [id number] Attestation Signer name: Dago Vides MD I attest that I was present for the entire procedure. I reviewed the stored images and agree with the report as written. Signed by: Dago Vides MD on 03/10/2020 11:01 AM
[2020-03-10] MEDS ORDERED: ACETAMINOPHEN 325 MG/10 ML UDC ONE (12:18)
--- NOTE | 2020-03-10 15:50 | Progress Note ---
DATE: 03/10/2020 Renal progress note. SUBJECTIVE: The patient underwent a CT-guided biopsy of the right kidney this morning. The patient feels okay. PHYSICAL EXAMINATION: VITAL SIGNS: Vital signs are stable. GENERAL: The patient is morbidly obese. HEENT: No increased JVD. CARDIOVASCULAR: Regular rate and rhythm. LUNGS: Decreased breath sounds at bases. ABDOMEN: Decreased bowel sounds EXTREMITIES: The patient's edema is much decreased. The patient has a Reginaldo catheter in the right neck area. LABORATORY RESULTS: Hemoglobin and hematocrit 10 and 31 respectively. Sodium 133, potassium 4.9, chloride 101, bicarbonate 19, BUN and creatinine of 36 and 2.24 respectively. IMPRESSION: 1. Anasarca. 2. Diabetes. 3. Diabetic nephropathy. 4. Nephrotic range proteinuria. 5. Fluid overload. PLAN: The patient underwent CT-guided biopsy of the right kidney. The patient feels well and the dialysis catheter still there. We are going to arrange to have the dialysis catheter removed. If the hemoglobin and hematocrit are stable tomorrow, meaning that there is no bleed and then she can go home tomorrow. She will go home on Lasix 40 mg once a day and also potassium chloride 20 mEq once a day. I will follow her up in 1 to 2 weeks. I will follow up with the biopsy myself. Ather MD JOYCE Brown/JUAN MANUEL /[id number]
--- NOTE | 2020-03-10 15:55 | Progress Note ---
DATE: 03/10/2020 ADDENDUM: The patient has much protein. She has nephrotic range proteinuria. I am going to go ahead and now put her on an KAELA inhibitor. She is going to be on ramipril 5 mg once a day. Because of this, I will decrease her hydralazine from t.i.d. to b.i.d. Also, I will put her on some Lasix 40 mg once a day to go home on and also KCl 20 mEq once a day. Ather MD JOYCE Brown/JUAN MANUEL /[id number]
[2020-03-10] MEDS: RAMIPRIL 5 MG CAP PO SCH (16:37)
--- NOTE | 2020-03-10 17:00 | NUR ---
IR called and stated that IR does not need to remove temp dialysis catheter as it is not tunnelled. house sup notified. at bedside now to remove cath. removed cath with no issue. tip intact. dressing applied.
--- NOTE | 2020-03-10 17:15 | NUR ---
called to bedside. patient stated she feels lightheaded and asked me to check her blood pressure. blood pressure 117/68- heart rate 140. medical delivery technician called to preform 12 lead.
--- NOTE | 2020-03-10 17:20 | NUR ---
ekg reading svt heart rate 138. Dr. Mahendra coyle.
[2020-03-10] MEDS ORDERED: DILTIAZEM HCL 5 MG/ML 5 ML VIAL IV ONE (17:30)
--- NOTE | 2020-03-10 17:30 | NUR ---
20 mg cardiziem x1 ordered and given. patient's heart rate 73 at this time. patient placed back on telemetry for monitoring.
--- NOTE | 2020-03-10 17:58 | NUR ---
patient stating she feels much better. heart rate currently 71 nsr.
[2020-03-10] MEDS: ATENOLOL 100 MG TAB PO SCH (21:00)
[2020-03-10] MEDS: SIMVASTATIN 20 MG TAB PO SCH (21:00)
[2020-03-10] MEDS: INSULIN GLARGINE 100 UNITS/ML VIAL SQ SCH (21:00)
[2020-03-11] MEDS: ALBUTEROL/IPRATROPIUM 3 ML NEB NEB SCH ×2 (00:10→07:05)
[2020-03-11] MEDS: ACETAMINOPHEN 325 MG TAB PO PRN (00:15)
[2020-03-11 00:47] VITALS: BP 180/81
[2020-03-11 04:50] VITALS: BP 151/62
[2020-03-11] MEDS: LEVOTHYROXINE SODIUM 100 MCG TAB PO SCH (06:00)
[2020-03-11] MEDS: NIFEDIPINE CR 30 MG TAB PO SCH (06:00)
--- NOTE | 2020-03-11 07:00 | NUR ---
pt appearing short of breath. telemetry reviewed- HR 137. dr. lee paged for orders.
[2020-03-11] MEDS ORDERED: METOPROLOL TARTRATE 50 MG TAB PO SCH ×2 (07:25→14:00)
[2020-03-11 07:29] LABS: BASOPHILS # (AUTO) 0.1 (0.0-0.1); EOSINOPHILS # (AUTO) 0.4 (0.0-0.4); EOSINOPHILS % 4.2 % (0.0-6.0); HEMATOCRIT 36.3 % (34.2-44.1); HEMOGLOBIN 11.6 g/dL (12.0-16.0); LYMPHOCYTES # (AUTO) 1.4 (1.0-3.2); LYMPHOCYTES % 14.9 % (18.0-39.1); MEAN CORPUSCULAR HEMOGLOBIN 26.7 pg (28-32); MEAN CORPUSCULAR VOLUME 83.4 fL (81-99); MONOCYTES # (AUTO) 0.9 (0.2-0.8); NEUTROPHILS # (AUTO) 6.6 (2.1-6.9); NEUTROPHILS % 69.6 % (38.7-80.0); PLATELET COUNT 236 x10e3/uL (140-360); RED BLOOD COUNT 4.35 x10e6/uL (3.6-5.1); RED CELL DISTRIBUTION WIDTH 14.4 % (11.7-14.4)
[2020-03-11] MEDS: INSULIN LISPRO 100 UNIT/1 ML 3ML VIAL SQ SCH (07:30)
--- NOTE | 2020-03-11 07:30 | NUR ---
orders received and carried out from medical anthropology director. reviewed new orders with renal. okay to give.
[2020-03-11] MEDS: RAMIPRIL 5 MG CAP PO SCH (07:48)
[2020-03-11] MEDS: SALINE 0.65% NAS SOLN 1 SPRAY BTL SCH (07:48)
[2020-03-11] MEDS: FAMOTIDINE 20 MG TAB PO SCH (07:48)
[2020-03-11] MEDS: FLUTICASONE PROPIONATE NASAL SPRAY NS SCH (07:48)
[2020-03-11] MEDS: FUROSEMIDE INJ 10 MG/ML 4 ML VIAL IV SCH (07:48)
[2020-03-11] MEDS: ASPIRIN 81 MG CHEW TAB PO SCH (07:49)
[2020-03-11] MEDS: SITAGLIPTIN 100 MG TAB PO SCH (07:49)
[2020-03-11] MEDS: BENZONATATE 100 MG CAP PO SCH (07:49)
[2020-03-11] MEDS: HYDRALAZINE HCL 25 MG TAB PO SCH (07:49)
[2020-03-11 07:56] LABS: ANION GAP 17.5 mmol/L (8-16); CALCIUM 9.1 mg/dL (8.4-10.2); CREATININE, SERUM 2.04 mg/dL (0.57-1.11); POTASSIUM 4.5 mmol/L (3.5-5.1)
[2020-03-11 08:00] VITALS: BP 140/86
--- NOTE | 2020-03-11 08:00 | NUR ---
cardiology DIRECTOR GRAPHICS at bedside. orders received and carried out.
[2020-03-11] MEDS ORDERED: SODIUM CHLORIDE 0.9% 1000ML 1,000 ML IV SCH (08:45)
[2020-03-11] MEDS ORDERED: DILTIAZEM HCL 5 MG/ML 5 ML VIAL IV ONE (09:10)
--- NOTE | 2020-03-11 09:23 | Discharge Summary ---
PRIMARY CARE PHYSICIAN: Dr. Viraj Aburto. CONSULTANTS: 1. Dr. Mahendra Amaro. 2. Dr. Ridge Soriano, Nephrology. FINAL DIAGNOSES: 1. [id number] systolic dysfunction congestive heart failure exacerbation, associated with pulmonary edema, decompensated congestive heart failure. 2. Nephrotic syndrome, status post right kidney biopsy, pathology report is still pending. 3. Morbid obesity associated with obstructive sleep apnea. 4. Acute exacerbation of chronic obstructive pulmonary disease associated with wheezing. The patient is a heavy smoker. 5. Baseline diabetes type 2, dyslipidemia, hypertension, and chronic kidney disease stage 2 to 3 associated with diabetes type 2, hypertension, congestive heart failure. SUMMARY: The patient is a 44-year-old female, came into the hospital with pulmonary edema. Please review my history and physical. During hospitalization, the patient had a difficult time diuresing with IV furosemide. The patient resistant to diuresis and persistently with pulmonary edema and congestive heart failure. Subsequently, the patient underwent ultrafiltration, removing fluid through dialysis. The patient did well. Urine collection showed the patient has nephrotic syndrome. The patient continued with treatment. Medication was adjusted. She was found to have low thyroid even though she was on Levoxyl 88 mcg and that was increased to 100 mcg daily. The patient also has COPD exacerbation, that was treated. She was on empiric antibiotics. The patient also has SVT, treated with Lopressor, increasing dosing. Today, the patient did receive Cardizem and she is going with digoxin 0.125 mg daily. The patient is otherwise stable at this time. She had kidney biopsy, for which she had to follow up with director mba for pathology results and treatment at a later day. In the meantime, her medication is adjusted. For going home, the following instructions for her home medication. She will continue with aspirin, her diabetic medication, albuterol, nifedipine ER 90 mg daily, simvastatin 20 mg at night. She will stop atenolol, furosemide 20 mg, levothyroxine 88 mcg, lisinopril 40 mg, and metformin. New prescriptions are Lopressor 100 mg twice a day, levothyroxine 100 mcg daily, Lasix 40 mg twice a day, hydralazine 50 mg t.i.d., digoxin 0.125 mg daily. I instructed the patient to follow up with director mba within a week. The patient will follow up with Dr. Mahendra Amaro within a week as well. Her ejection fraction is 35%. Her imaging tests including an abdomen and pelvic CT scan showed cholelithiasis without cholecystitis. There is nonobstructive left renal calculi, 3 mm. No hydronephrosis. The patient's instructions were done. Fluid restriction to less than 2 L per 24 hours. Stop smoking. ADA renal diet. Activity as tolerated. Follow up closely. MD MARILU Conti/JUAN MANUEL /[id number]
--- NOTE | 2020-03-11 10:56 | NUR ---
patient discharged. Midline removed- tip intact. telemetry removed. patient given discharge instructions and prescriptions. denied any questions. patient aware of follow up appts needed. patient wheeled off unit to friend's personal vehicle in stable condition.
== END 2020-03-11 10:47 | disposition home or self-care (01) | DRG 291 ==
LOC: ER 07:12 → ERHOLD 08:49 → MED/SURG 10:35 → OBSVTOIN 10:53 → MED/SURG3 03-02 16:02
PROVIDERS: ADMIT Internal Medicine; ATTEND Internal Medicine
PROC: 02HV33Z Insertion of Infusion Device into Superior Vena Cava, Percutaneous Approach (ICD-10-PCS; principal; 2020-02-23)
PROC: 5A1D70Z Performance of Urinary Filtration, Intermittent, Less than 6 Hours Per Day (ICD-10-PCS; 2020-02-28)
PROC: 0TB03ZX Excision of Right Kidney, Percutaneous Approach, Diagnostic (ICD-10-PCS; 2020-03-10)
DX: I13.0 Hypertensive heart and chronic kidney disease with heart failure and stage 1 through stage 4 chronic kidney disease, or unspecified chronic kidney disease (principal); I50.43 Acute on chronic combined systolic (congestive) and diastolic (congestive) heart failure; J44.1 Chronic obstructive pulmonary disease with (acute) exacerbation; Z68.43 Body mass index [BMI] 50.0-59.9, adult; N17.9 Acute kidney failure, unspecified; Z68.41 Body mass index [BMI] 40.0-44.9, adult; E66.01 Morbid (severe) obesity due to excess calories; F17.210 Nicotine dependence, cigarettes, uncomplicated; E11.21 Type 2 diabetes mellitus with diabetic nephropathy; G47.33 Obstructive sleep apnea (adult) (pediatric); N18.3 Chronic kidney disease, stage 3 (moderate); E78.5 Hyperlipidemia, unspecified; E11.40 Type 2 diabetes mellitus with diabetic neuropathy, unspecified; E11.319 Type 2 diabetes mellitus with unspecified diabetic retinopathy without macular edema; Z79.4 Long term (current) use of insulin; Z11.59 Encounter for screening for other viral diseases
CPT/HCPCS: 36415; 36556; 36558; 50200; 71045; 74150; 74470; 76770; 76937; 77012; 80048; 80053; 80061; 81001; 81025; 81050; 82550; 82553; 82570; 82575; 82948; 83036; 83605; 83880; 84156; 84443; 84484; 85025; 85610; 86039; 86160; 86225; 86704; 86706; 87040; 87340; 90962; 93005; 93017; 93306; 94640; 94660; 96361; 96372; 99152; 99153; 99284; C1769; J0360; J1642; J1644; J1650; J1815; J1940; J2250; J3010; J7030; U0002